=== PATIENT | male | born 1970 | race Caucasian/White ===

== ENCOUNTER → 2019-10-01 09:30 | Outpatient (CLI) | payer OTHER, SELFPAY ==
--- NOTE | 2019-10-01 | DI.RAD.S_ITS ---
PROCEDURE: XR WRIST LT MIN 3V INDICATIONS: LEFT WRIST PAIN TECHNIQUE: 3 views of the wrist were acquired. COMPARISON: None. FINDINGS: Bones: No fractures or dislocations. No suspicious bony lesions. Soft tissues: No suspicious soft tissue calcifications. IMPRESSION: No fracture. No osseous lesion. If symptoms and/or clinical suspicion for pathology persists, further assessment with repeat radiographs (7-10 days) or advanced imaging (e.g. CT, MRI or bone scan) may be helpful. Dictated by: Anila Romero MD, PhD on 10/01/2019 at 17:27 Approved by: Anila Romero MD, PhD on 10/01/2019 at 17:27
== END ==
PROVIDERS: Family Provider Family Medicine; PCP Family Medicine; Referring Provider Family Medicine; Visit Provider Family Medicine
DX: M25.532 Pain in left wrist (principal)
CPT/HCPCS: 73110

== ENCOUNTER → 2020-01-26 09:36 | Outpatient (CLI) | payer OTHER, SELFPAY ==
[2020-01-26 11:58] LABS: COVID19 -Nasal RAPID Negative (Negative)
== END ==
PROVIDERS: PCP Family Medicine; Visit Provider Physician Assistant
DX: Z11.59 Encounter for screening for other viral diseases (principal)
CPT/HCPCS: 87635

== ENCOUNTER → 2020-03-26 08:36 | Outpatient (CLI) | payer OTHER, SELFPAY ==
[2020-03-26] MEDS: COVID-19 VACC(MODERNA-1)/PF 100 MCG/0.5 ML VIAL IM (08:42)
== END ==
PROVIDERS: PCP Family Medicine; Visit Provider Internal Medicine
DX: Z23 Encounter for immunization (principal)
CPT/HCPCS: 0011A; 91301

== ENCOUNTER → 2020-04-23 08:53 | Outpatient (CLI) | payer OTHER, SELFPAY ==
[2020-04-23] MEDS: COVID-19 VACC #2, MRNA(MOD) 100 MCG/0.5 ML VIAL IM (09:00)
== END ==
PROVIDERS: PCP Family Medicine; Visit Provider Internal Medicine
DX: Z23 Encounter for immunization (principal)
CPT/HCPCS: 0012A; 91301

== ENCOUNTER → 2021-01-14 12:54 | Outpatient (CLI) | payer OTHER, SELFPAY ==
[2021-01-14] MEDS: COVID-19 VACC #3, MRNA(MOD) 50 MCG/0.25 ML VIAL IM (13:02)
== END ==
PROVIDERS: PCP Family Medicine; Visit Provider Internal Medicine
DX: Z23 Encounter for immunization (principal)
CPT/HCPCS: 0013A; 91301

== ENCOUNTER 2022-09-26 06:37 | Day surgery (SDC) | payer OTHER, SELFPAY ==
[2022-09-26 07:13] VITALS: BP 139/92; PULSE 63; RESP 16; TEMP 36.8; O2SAT 100; BMI 31.0
--- NOTE | 2022-09-26 07:19 | PM.HP.1 ---
History of Present Illness History of Present Illness Date Patient Seen: 09/26/22 Time Patient Seen: 07:19 Chief complaint: Screening Colonoscopy Narrative: First colonoscopy, no family history and no GI symptoms Meds Home Medications and Allergies Home Medications Medication Instructions Recorded Confirmed Type atorvastatin 20 mg PO DAILY 09/26/22 09/26/22 History Allergies Allergy/AdvReac Type Severity Reaction Status Date / Time No Known Allergies Allergy Verified 09/26/22 07:08 Review of Systems Review of Systems ROS: Yes All systems reviewed with the patient and are negative except as otherwise documented Exam Const General: cooperative, healthy appearing and comfortable HENMT Head: normal to inspection, normocephalic and atraumatic Face and sinus: normal facial exam Eyes General: appearance normal, both eyes and all related structures Sclera: sclerae normal Neck Neck: trachea midline Chest Chest: normal inspection of the chest Resp Effort & Inspection: normal respiratory effort and able to speak in complete sentences Cardio Rate: regular rate Rhythm: regular rhythm GI Palpation: soft Skin General: elasticity normal and turgor normal Neuro General: patient alert, patient awake and patient oriented x3 Cognition: normal cognition Speech: speech normal Psych Mental Status: mental status grossly normal Judgment: judgment good Assessment & Plan Assessment & Plan narrative: Colon cancer screening using colonoscopy under MAC Time Spent With Patient Time with patient: less than 30 minutes
[2022-09-26] MEDS: LACTATED RINGERS 1,000 ML 42 ML IV (07:28)
--- NOTE | 2022-09-26 07:54 | PM.OP.COLON ---
Operative Date/Time/Diagnoses Date of procedure: 09/26/22 Time of procedure: 07:55 Pre-op diagnosis: Colon cancer screening Post-op diagnosis: same Procedure & Clinicians Study performed: Colonoscopy under MAC Same procedure as scheduled: Yes Indications: Colon cancer screening Surgeon: Barbara Miller Procedure Notes Procedure in detail: Preop diagnosis: Colon cancer screening Postop diagnosis: Same Operative procedure: Colonoscopy under MAC Surgeon: Julianne Miller MD Findings: Normal colonoscopy. No diverticulosis, no polyps Procedure: Patient placed in lateral position. Rectal exam performed showing normal tone no masses. Scope was inserted into the rectum and advanced to the ileocecal valve with minimal difficulty. Insufflation and extraction of the scope and the above findings. Retroflex was included in the rectum Impression: Normal colonoscopy, no polyps, no diverticulosis. Plan: Repeat colonoscopy in 10 years unless otherwise indicated by change in clinical condition Specimen(s): none sent Complications: none Post-procedure Recommendations: Colonoscopy in 10 years Follow up: as needed Disposition: PACU
[2022-09-26 07:56] VITALS: BP 113/75; PULSE 59; RESP 16; TEMP 36.1; O2SAT 94
[2022-09-26 07:59] VITALS: BP 114/67; PULSE 56; RESP 14; O2SAT 95
[2022-09-26 08:06] VITALS: BP 120/70; PULSE 57; RESP 12; O2SAT 96
[2022-09-26 08:13] VITALS: BP 102/64; PULSE 54; RESP 19; O2SAT 97
== END 2022-09-26 08:22 | disposition home or self-care (01) ==
PROVIDERS: PCP Family Medicine; Referring Provider Surgery; Visit Provider Surgery
PROC: 0DJD8ZZ Inspection of Lower Intestinal Tract, Via Natural or Artificial Opening Endoscopic (ICD-10-PCS; CPT 45378; principal; 2022-09-26 07:45)
DX: Z12.11 Encounter for screening for malignant neoplasm of colon (principal)
CPT/HCPCS: 45378; J2704

== ENCOUNTER → 2023-10-04 11:19 | Outpatient (CLI) | payer OTHER, SELFPAY ==
--- NOTE | 2023-10-04 11:21 | DI.RAD.S_ITS ---
PROCEDURE: XR SHOULDER LT MIN 2V INDICATIONS: SHOULDER PAIN TECHNIQUE: 3 views of the shoulder were acquired. COMPARISON: None. FINDINGS: Bones: No acute fractures or dislocations. No suspicious bony lesions. Visualized ribs appear intact. [id number] acromioclavicular joint osteoarthrosis. Soft tissues: No suspicious soft tissue calcifications. IMPRESSION: 1. [id number] acromioclavicular joint osteoarthrosis. 2. No acute osseous abnormality. If symptoms persist or if there is continued clinical concern, cross-sectional imaging such as MRI or CT may be helpful for further evaluation. Approved by: Markell Juarez M.D. on 10/05/2023 at 9:13
== END ==
PROVIDERS: PCP Family Medicine; Referring Provider Family Medicine; Visit Provider Family Medicine
DX: M19.012 Primary osteoarthritis, left shoulder (principal); M25.512 Pain in left shoulder; G89.29 Other chronic pain
CPT/HCPCS: 73030

== ENCOUNTER → 2023-12-20 07:41 | Outpatient (CLI) | payer OTHER, SELFPAY | PROVIDERS: Family Provider Family Medicine; PCP Family Medicine; Referring Provider Family Medicine; Visit Provider Family Medicine | DX: R20.0 Anesthesia of skin (principal); M25.512 Pain in left shoulder | CPT/HCPCS: 95886; 95909 ==

== ENCOUNTER → 2024-01-05 10:38 | Outpatient (CLI) | payer OTHER, SELFPAY ==
--- NOTE | 2024-01-05 10:38 | DI.MRI.S_ITS ---
PROCEDURE: MR CERVICAL SPINE WO CON INDICATIONS: LEFT ARM NUMBNESS TECHNIQUE: Noncontrast sagittal T1 spin echo and T2 fast spin echo, sagittal STIR, foraminal oblique sagittal T2 fast spin echo, and axial gradient echo or T2 fast spin echo through the cervical spine. COMPARISON: None. FINDINGS: Image quality: Excellent. Alignment and Curvature: There is straightening of the normal cervical lordosis. No focal AP alignment abnormality is seen. Bone Marrow: Marrow demonstrates normal overall signal. Spinal Cord: Abnormally increased T2 weighted signal can be seen at the C4-C5 level within the spinal cord itself, best demonstrated on series 4, image 28, yet also seen at on series 3, image 9. Visualized spinal cord otherwise has normal size and signal. No cerebellar tonsillar herniation. Paraspinous Soft Tissues: No paravertebral masses. Prevertebral soft tissues are normal in thickness. C2-C3: The disc height and disk signal are well-preserved. A mild degree of generalized disc osteophyte complex is seen. There is a central disc osteophyte protrusion. Mild facet joint hypertrophy is seen. No neural foraminal narrowing is seen. Mild central canal narrowing is seen, with minimal mass effect upon the ventral spinal cord. C3-C4: The disc height and disk signal are relatively well-preserved. Mild to moderate disc osteophyte complex is seen, with a central disc extrusion. Moderate facet joint hypertrophy is seen. There is at least moderate left-sided and moderate right-sided neural foraminal narrowing. Mild to moderate central canal narrowing is seen, with minimal mass effect upon the ventral spinal cord. C4-C5: Mild loss of disc height is seen. Loss of disc signal is seen. Moderate generalized disc osteophyte complex is seen. There is a central disc osteophyte protrusion seen, with moderate to severe central canal narrowing. There is flattening of the ventral spinal cord seen. There is moderate to severe left-sided and at least moderate right-sided neural foraminal narrowing. C5-C6: Moderate loss of disc height is seen. Loss of disc signal is seen. Moderate disc osteophyte complex is seen, which is eccentric to the right. There is a central disc osteophyte protrusion. Uncovertebral joint hypertrophy is seen at this level. Moderate facet joint hypertrophy is seen. There is moderate to severe bilateral neural foraminal narrowing seen. At least moderate central canal narrowing is seen, with associated ventral cord flattening. C6-C7: Moderate loss of disc height is seen. Loss of disc signal is seen. Moderate disc osteophyte complex is seen, with a central/right disc extrusion. Mild to moderate facet hypertrophy is seen. There is moderate bilateral neural foraminal narrowing seen. Moderate to severe central canal narrowing is seen, with associated ventral cord flattening. C7-T1: The disc height and disk signal are well-preserved. A mild degree of generalized disc osteophyte complex is seen. Mild facet joint hypertrophy is seen. Mild bilateral neural foraminal narrowing is seen. No central canal narrowing is seen. IMPRESSION: Multiple levels of significant cervical spine degenerative change can be seen, including moderate to severe central canal narrowing at C4-C5. 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 Significant cervical spine degenerative change can also be seen at C5-C6 and C6-C7. Straightening of the normal cervical lordosis is seen, which is commonly observed in patients with muscular spasm. Dictated by: Brayan Alcantara M.D. on 01/07/2024 at 10:51 Approved by: Brayan Alcantara M.D. on 01/07/2024 at 10:56
== END ==
LOC: MRI 10:38
PROVIDERS: Family Provider Family Medicine; PCP Family Medicine; Referring Provider Family Medicine; Visit Provider Family Medicine
DX: R20.0 Anesthesia of skin (principal); M47.812 Spondylosis without myelopathy or radiculopathy, cervical region; M48.02 Spinal stenosis, cervical region
CPT/HCPCS: 72141

== ENCOUNTER 2024-01-17 11:30 | Outpatient (RCR) | payer OTHER, SELFPAY ==
--- NOTE | 2023-11-20 09:43 | PT.OIE ---
Current Diagnoses Pain in left shoulder (11/20/23) Visit Care Team Role Provider Type Travis Shepard MD Attending Provider Physician Family Provider Primary Care Provider Referring Provider Specialty: Family Practice Address: [address] [place] [address], [facility], [place], [address] Email: [email or web address] Physical Therapy Initial Evaluation PT-OP-A Visit Information Start: 11/15/23 17:29 Freq: Status: Active Protocol: Document 11/20/23 08:17 [facility] (Rec: 11/20/23 09:43 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 (Rec: 11/20/23 09:43 [facility] [id number]) Current Condition History of Current Condition Onset Date 6 months ago Current Complaints LUE numbnes/tingling History of Current Condition Pt reports not sure what started the pain. HE couldn't sleep d/t shoudler hurting. Didn't go to the doctor until recently. It had calmed down when he saw the doctor and had an injection and had 30 days of anti inflamatory. Shoulder itself is feeling better but has a numbness down shoulder and lat arm to thumb. Doctor wants EMG done and he set for Dec 19. Has been able to workout again but going really lightly. Not doing any pull or pull up. Doing light pressing, curls, squats. avoiding deadlift. Tingliness comes and goes. Yesterday playing a video w/son last night moving thumb made arm goe numb. He falls asleep okay but wakes up d/t pain. Can't sleep on R d/t L arm tingling. Has to sleep on L. 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 feels like he doesn't have the strength. 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 Every once in a while gets a pinch in neck after sleeping funny. denies back issues. Has some elbow/ wrist wearing down. Has broken L forearm as teen. At first was using ibuprofen, tylenol and ice. Has some shoulder pain still but mostly w/heavy exersion and its not as much. Treatment Goals Patient/Caregiver Goals be able to sleep, be able to do all work activities w/o tingling/numbness/pain or weakness, be able to get lifting full body PT-OP-C Subjective Start: 11/15/23 17:29 Freq: Status: Active Protocol: Document 11/20/23 08:17 [facility] (Rec: 11/20/23 09:43 [facility] [id number]) Patient Questionnaires Quick Dash- Upper Extremity Quick Dash UE Score 27.27 OP-PT Pain Assessment Location LUE pain Pain Location Details L shoulder to lat arm to thumb Description Tingling Description- Other numbness Frequency Frequent Other Pain Aggravating Factors debra, push up from chair, climb, unknown just happens Other Pain Alleviating Factors change position PT-OP-F Manual Assessment Start: 11/15/23 17:29 Freq: Status: Active Protocol: Document 11/20/23 08:17 [facility] (Rec: 11/20/23 09:43 [facility] [id number]) Manual Assessments Soft Tissue Assessment Soft Tissue Mobility Assessment tightness and tingling elicited w/palpation of scalenes & 1st rib L Joint Mobility Assessment Joint Mobility Assessment elevated L 1st rib PT-OP-J Posture/Palpation/Skin Start: 11/15/23 17:29 Freq: Status: Active Protocol: Document 11/20/23 08:17 [facility] (Rec: 11/20/23 09:43 [facility] [id number]) Posture Evaluation Comments Posture Comments R shoulder higher; L humerus more ant PT-OP-K Range of Motion Start: 11/15/23 17:29 Freq: Status: Active Protocol: Document 11/20/23 08:17 [facility] (Rec: 11/20/23 09:43 [facility] [id number]) Cervical Spine Range of Motion Cervical Spine Active Degrees Flexion 56 Extension 54 Rotation Left 60 Rotation Right 64 Lateral Flexion Left 40 Lateral Flexion Right 40 Comments cramp w/L rot & SB; pull L w/r rot & SB; arm symptoms w/ext; relief flex Shoulder Goniometric Range of Motion Shoulder ROM Limitations Comments normal ROM tightness w/ER, IR behind back, flex, ext PT-OP-L Special Tests Start: 11/15/23 17:29 Freq: Status: Active Protocol: Document 11/20/23 08:17 [facility] (Rec: 11/20/23 09:43 [facility] [id number]) Special Tests Cervical Spine Special Tests costoclavicular syndrome test Test Results neg l wrights test Test Results positive L arterial screen Test Results positional testing neg Comments ausciltation WNL carotid and heart; BP 155/93 Traction Test Results compression-n symptoms; distraction no symptoms Neural Special Tests- Upper Body Median Nerve Tension Test Results positive L Radial Nerve Tension Test Results neg L Ulnar Nerve Tension Test Results neg L PT-OP-M Strength Start: 11/15/23 17:29 Freq: Status: Active Protocol: Document 11/20/23 08:17 [facility] (Rec: 11/20/23 09:43 [facility] [id number]) Shoulder Strength Shoulder Manual Muscle Testing Right Flexion 5 Normal Extension 5 Normal Abduction (C5) 5 Normal External Rotation 5 Normal Internal Rotation 5 Normal Left Flexion 4+ Good+ Extension 4+ Good+ Abduction (C5) 4+ Good+ External Rotation 4- Good- Internal Rotation 4- Good- Elbow/Forearm Strength Elbow and Forearm Manual Muscle Testing Right Flexion (C6) 5 Normal Extension (C7) 5 Normal Pronation 5 Normal Supination 5 Normal Left Flexion (C6) 4+ Good+ Extension (C7) 4+ Good+ Pronation 4+ Good+ Supination 5 Normal Wrist Strength Wrist Manual Muscle Testing Right Flexion (C7) 5 Normal Extension (C6) 5 Normal Ulnar Deviation 5 Normal Radial Deviation 5 Normal Left Flexion (C7) 4+ Good+ Extension (C6) 4+ Good+ Ulnar Deviation 5 Normal Radial Deviation 4+ Good+ Hand Wood Pattern Maker/Pinch Strength Hand Dominance Hand Dominance Right Hand Strength Right Comments 52kg, 49kg, 42kg Left Comments 53kg,47kg, 50kg PT-OP-Q Treatments Start: 11/15/23 17:29 Freq: Status: Active Protocol: Document 11/20/23 08:17 [facility] (Rec: 11/20/23 09:43 [facility] [id number]) Therapeutic Exercises Sitting Exercises neck Sitting Exercise Name sB Side bilateral Reps/Minutes 8 Standing Exercises pec stretch Standing Exercise Name doorway straight arms Side bilateral Reps/Minutes 30 sec Self-Care/Home Management Treatment Education Other Education 8 min: edu re: n anatomy and pathway. Discussed w/ pt n symptoms and presentation; edu on mm surrounding n and weakness noted; edu re: icing to neck to help dec symptoms PT-OP-T Assessment and Plan Start: 11/15/23 17:29 Freq: Status: Active Protocol: Document 11/20/23 08:17 [facility] (Rec: 11/20/23 09:43 [facility] [id number]) Physical Therapy Assessment Rehab Potential Rehabilitation Potential Good Evaluation Complexity Number of Personal Factors/Comorbidities 1-2 Number of Body Systems Impaired 4 or More Clinical Presentation at Evaluation Stable Impairments Impairments Activity Tolerance,Functional Activities,Functional Mobility ,Pain,Posture,ROM,Soft Tissue Mobility,Strength Goals ROM Short Term Goal (STG) Pt will have full cervical ROM w/o inc symptoms STG Duration 12/25 Halfway Goal (LTG) Pt will have full shoulder ROM w/o inc symptoms LTG Duration 01/24 strength Short Term Goal (STG) Pt will be indep w/HEP STG Duration 12/24 Printing Technician Goal (LTG) Pt will score at least 4/5 on EFT and 5/5 on all UE MMT w/o inc symptoms LTG Duration 01/28 activities Short Term Goal (STG) Pt will be able to return to lifting fully w/ missile control pilot weights w/o inc symptoms STG Duration 12/10 Printing Technician Goal (LTG) pt will be able to do all activities at work w/o inc symptoms or feeling of weakness LTG Duration 01/28 Assessment Summary Assessment Pt presents w/ current symptoms of LUE tingling/ numbness and weakness, but when initiatlly started 6 months ago, had significant L shoulder pain that improved w/ injecitons and a months of NSAIDs. 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 PEr testing, pt has med n tension and was positive w/barth's manuever along w/spurlings and ext of neck indicating likely symtpoms coming from neck and superior med n pathway. Pt would benefit from skilled PT to dec symptoms and imrpove pt mobility and strength. Physical Therapy Plan Frequency and Duration Frequency of Treatment 1-2x/wk Duration of treatment (weeks) 10 Plan of Care Start Date 11/20/23 Plan of Care End Date 01/29/24 Therapeutic Interventions Therapeutic Interventions Home Exercise Program,Joint Mobilizations,Manual Therapy, Neuromuscular Re-education, Patient/Caregiver Education, Self-Care/Home Management,Soft Tissue Mobilization,Taping, Therapeutic Activities, Therapeutic Exercises Modalities Cold Pack/Ice Massage,Electric Stimulation,Hot Packs, Infrared Therapy,Traction- Mechanical,Ultrasound Next Visit Focus/Plan Next Note Type Treatment Note Next Visit Plan work along median n pathway, work on upper thoracic mobility, scap mobiltiy, ribs, AC, SC mobility HEP: IR/ER
--- NOTE | 2023-11-20 09:43 | PT.OPPOC ---
Physical, Occupational & Speech Therapy At [facility] Current Diagnoses Pain in left shoulder (11/20/23) Visit Care Team Role Provider Type Travis Shepard MD Attending Provider Physician Family Provider Primary Care Provider Referring Provider Specialty: Family Practice Address: [address] [place] [address], [facility] [place], [address] Email: [email or web address] Plan Of Care PT-OP-B Current Condition Start: 11/15/23 17:29 Freq: Status: Active Protocol: Document 11/20/23 08:17 [facility] (Rec: 11/20/23 09:43 [facility] [id number]) Current Condition History of Current Condition Onset Date 6 months ago Current Complaints LUE numbnes/tingling History of Current Condition Pt reports not sure what started the pain. HE couldn't sleep d/t shoudler hurting. Didn't go to the doctor until recently. It had calmed down when he saw the doctor and had an injection and had 30 days of anti inflamatory. Shoulder itself is feeling better but has a numbness down shoulder and lat arm to thumb. Doctor wants EMG done and he set for Dec 19. Has been able to workout again but going really lightly. Not doing any pull or pull up. Doing light pressing, curls, squats. avoiding deadlift. Tingliness comes and goes. Yesterday playing a video w/son last night moving thumb made arm goe numb. He falls asleep okay but wakes up d/t pain. Can't sleep on R d/t L arm tingling. Has to sleep on L. 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 feels like he doesn't have the strength. 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 Every once in a while gets a pinch in neck after sleeping funny. denies back issues. Has some elbow/ wrist wearing down. Has broken L forearm as teen. At first was using ibuprofen, tylenol and ice. Has some shoulder pain still but mostly w/heavy exersion and its not as much. Treatment Goals Patient/Caregiver Goals be able to sleep, be able to do all work activities w/o tingling/numbness/pain or weakness, be able to get lifting full body PT-OP-T Assessment and Plan Start: 11/15/23 17:29 Freq: Status: Active Protocol: Document 11/20/23 08:17 [facility] (Rec: 11/20/23 09:43 [facility] [id number]) Physical Therapy Assessment Rehab Potential Rehabilitation Potential Good Evaluation Complexity Number of Personal Factors/Comorbidities 1-2 Number of Body Systems Impaired 4 or More Clinical Presentation at Evaluation Stable Impairments Impairments Activity Tolerance,Functional Activities,Functional Mobility ,Pain,Posture,ROM,Soft Tissue Mobility,Strength Goals ROM Short Term Goal (STG) Pt will have full cervical ROM w/o inc symptoms STG Duration 12/25 Financial Reserve Clerk Goal (LTG) Pt will have full shoulder ROM w/o inc symptoms LTG Duration 01/24 strength Short Term Goal (STG) Pt will be indep w/HEP STG Duration 12/24 [facility]cf Goal (LTG) Pt will score at least 4/5 on EFT and 5/5 on all UE MMT w/o inc symptoms LTG Duration 01/28 activities Short Term Goal (STG) Pt will be able to return to lifting fully w/ professional 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 PEr testing, pt has med n tension and was positive w/barth's manuever along w/spurlings and ext of neck indicating likely symtpoms coming from neck and superior med n pathway. Pt would benefit from skilled PT to dec symptoms and imrpove pt mobility and strength. Physical Therapy Plan Frequency and Duration Frequency of Treatment 1-2x/wk Duration of treatment (weeks) 10 Plan of Care Start Date 11/20/23 Plan of Care End Date 01/29/24 Therapeutic Interventions Therapeutic Interventions Home Exercise Program,Joint Mobilizations,Manual Therapy, Neuromuscular Re-education, Patient/Caregiver Education, Self-Care/Home Management,Soft Tissue Mobilization,Taping, Therapeutic Activities, Therapeutic Exercises Modalities Cold Pack/Ice Massage,Electric Stimulation,Hot Packs, Infrared Therapy,Traction- Mechanical,Ultrasound Next Visit Focus/Plan Next Note Type Treatment Note Next Visit Plan work along median n pathway, work on upper thoracic mobility, scap mobiltiy, ribs, AC, SC mobility HEP: IR/ER Plan of Care Dates Plan of Care Start Date 11/20/23 Plan of Care End Date 01/29/24 Electronically Signed by: Blanca Hylton, PT 11/20/23 0943 If you are in agreement with this Plan of Care, please return a signed and dated copy. I have reviewed this Plan of Care and certify that the skilled therapy services above are required to meet the patient?s needs. Physician Signature Date Printed Name and Credentials Clinical Instructor Signature Printed Name and Credentials
--- NOTE | 2023-11-26 12:27 | PT.OTN ---
Current Diagnoses Pain in left shoulder (11/26/23) Physical Therapy Treatment Note PT-OP-A Visit Information Start: 11/15/23 17:29 Freq: Status: Active Protocol: Document 11/26/23 09:49 [facility] (Rec: 11/26/23 12:26 [facility] [id number]) Out-Patient Physical Therapy Visit Information Visit Information Visit Type Treatment Note Visit Note 99 visits/yr Visit Start Time 09:50 Visit Stop Time 10:30 Visit Number 2 Number of DRAWING KIL[employer] SUPERVISOR Visits 0 PT-OP-B Current Condition Start: 11/15/23 17:29 Freq: Status: Active Protocol: Document 11/20/23 08:17 [facility] (Rec: 11/20/23 09:43 [facility] [id number]) Current Condition History of Current Condition Onset Date 6 months ago Current Complaints LUE numbnes/tingling History of Current Condition Pt reports not sure what started the pain. HE couldn't sleep d/t shoudler hurting. Didn't go to the doctor until recently. It had calmed down when he saw the doctor and had an injection and had 30 days of anti inflamatory. Shoulder itself is feeling better but has a numbness down shoulder and lat arm to thumb. Doctor wants EMG done and he set for Dec 19. Has been able to workout again but going really lightly. Not doing any pull or pull up. Doing light pressing, curls, squats. avoiding deadlift. Tingliness comes and goes. Yesterday playing a video w/son last night moving thumb made arm goe numb. He falls asleep okay but wakes up d/t pain. Can't sleep on R d/t L arm tingling. Has to sleep on L. 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 feels like he doesn't have the strength. 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 Every once in a while gets a pinch in neck after sleeping funny. denies back issues. Has some elbow/ wrist wearing down. Has broken L forearm as teen. At first was using ibuprofen, tylenol and ice. Has some shoulder pain still but mostly w/heavy exersion and its not as much. Treatment Goals Patient/Caregiver Goals be able to sleep, be able to do all work activities w/o tingling/numbness/pain or weakness, be able to get lifting full body PT-OP-C Subjective Start: 11/15/23 17:29 Freq: Status: Active Protocol: Document 11/26/23 09:49 [facility] (Rec: 11/26/23 12:26 [facility] [id number]) OP-PT Subjective Patient Comments Patient Comments pt reports compliance w/ exercises PT-OP-F Manual Assessment Start: 11/15/23 17:29 Freq: Status: Active Protocol: Document 11/20/23 08:17 [facility] (Rec: 11/20/23 09:43 [facility] [id number]) Manual Assessments Soft Tissue Assessment Soft Tissue Mobility Assessment tightness and tingling elicited w/palpation of scalenes & 1st rib L Joint Mobility Assessment Joint Mobility Assessment elevated L 1st rib PT-OP-J Posture/Palpation/Skin Start: 11/15/23 17:29 Freq: Status: Active Protocol: Document 11/20/23 08:17 [facility] (Rec: 11/20/23 09:43 [facility] [id number]) Posture Evaluation Comments Posture Comments R shoulder higher; L humerus more ant PT-OP-K Range of Motion Start: 11/15/23 17:29 Freq: Status: Active Protocol: Document 11/20/23 08:17 [facility] (Rec: 11/20/23 09:43 [facility] [id number]) Cervical Spine Range of Motion Cervical Spine Active Degrees Flexion 56 Extension 54 Rotation Left 60 Rotation Right 64 Lateral Flexion Left 40 Lateral Flexion Right 40 Comments cramp w/L rot & SB; pull L w/r rot & SB; arm symptoms w/ext; relief flex Shoulder Goniometric Range of Motion Shoulder ROM Limitations Comments normal ROM tightness w/ER, IR behind back, flex, ext PT-OP-L Special Tests Start: 11/15/23 17:29 Freq: Status: Active Protocol: Document 11/20/23 08:17 [facility] (Rec: 11/20/23 09:43 [facility] [id number]) Special Tests Cervical Spine Special Tests costoclavicular syndrome test Test Results neg l wrights test Test Results positive L arterial screen Test Results positional testing neg Comments ausciltation WNL carotid and heart; BP 155/93 Traction Test Results compression-n symptoms; distraction no symptoms Neural Special Tests- Upper Body Median Nerve Tension Test Results positive L Radial Nerve Tension Test Results neg L Ulnar Nerve Tension Test Results neg L PT-OP-M Strength Start: 11/15/23 17:29 Freq: Status: Active Protocol: Document 11/20/23 08:17 [facility] (Rec: 11/20/23 09:43 [facility] [id number]) Shoulder Strength Shoulder Manual Muscle Testing Right Flexion 5 Normal Extension 5 Normal Abduction (C5) 5 Normal External Rotation 5 Normal Internal Rotation 5 Normal Left Flexion 4+ Good+ Extension 4+ Good+ Abduction (C5) 4+ Good+ External Rotation 4- Good- Internal Rotation 4- Good- Elbow/Forearm Strength Elbow and Forearm Manual Muscle Testing Right Flexion (C6) 5 Normal Extension (C7) 5 Normal Pronation 5 Normal Supination 5 Normal Left Flexion (C6) 4+ Good+ Extension (C7) 4+ Good+ Pronation 4+ Good+ Supination 5 Normal Wrist Strength Wrist Manual Muscle Testing Right Flexion (C7) 5 Normal Extension (C6) 5 Normal Ulnar Deviation 5 Normal Radial Deviation 5 Normal Left Flexion (C7) 4+ Good+ Extension (C6) 4+ Good+ Ulnar Deviation 5 Normal Radial Deviation 4+ Good+ Hand Automation Controls Engineer/Pinch Strength Hand Dominance Hand Dominance Right Hand Strength Right Comments 52kg, 49kg, 42kg Left Comments 53kg,47kg, 50kg PT-OP-Q Treatments Start: 11/15/23 17:29 Freq: Status: Active Protocol: Document 11/26/23 09:49 [facility] (Rec: 11/26/23 12:26 [facility] [id number]) Therapeutic Exercises Supine Exercises foam roll Supine Exercise Name 1. Habd 2. flex Side bilateral Reps/Minutes 10 ea Sitting Exercises neck Sitting Exercise Name SB Side bilateral Reps/Minutes 5 ea Standing Exercises row Side bilateral Equipment Used L3 Reps/Minutes 12 Comments scap retraction cues ER Standing Exercise Name BUE Side bilateral Equipment Used L2 Reps/Minutes 12 Comments cues comfortable range IR Side left Equipment Used [place] band Reps/Minutes 15 pec stretch Standing Exercise Name doorway straight arms Side bilateral Reps/Minutes 30 sec Manual Therapy Treatment Consent Patient gave verbal consent for manual Yes treatment Soft Tissue Mobilization biceps Body Location L w/med n glide Mobilization Type Rolling,Sustained Pressure Intensity/Depth Moderate Body Position Supine pecs Body Location L major/minor Mobilization Type Rolling,Sustained Pressure Intensity/Depth Moderate Body Position Supine Comments w/shoulder IR/ER superior Body Location L UT, LS, scalenes Mobilization Type Rolling,Sustained Pressure Body Position s/l and supine Comments w/scap elevation/depression posterior Body Location L late & teres Mobilization Type Rolling Intensity/Depth Moderate Body Position Sidelying Comments w/scap movements Joint Mobilizations thoracic Joint L ribs Comments Lcaudal 1st rib FM AC Joint L clavicle ant FM w/shrug SC Joint L distraction FM w/c/r retraction PT-OP-T Assessment and Plan Start: 11/15/23 17:29 Freq: Status: Active Protocol: Document 11/26/23 09:49 [facility] (Rec: 11/26/23 12:26 [facility] [id number]) Physical Therapy Assessment Goals ROM Short Term Goal (STG) Pt will have full cervical ROM w/o inc symptoms STG Duration 12/25 Practice Physician Goal (LTG) Pt will have full shoulder ROM w/o inc symptoms LTG Duration 01/24 strength Short Term Goal (STG) Pt will be indep w/HEP STG Duration 12/24 Practice Physician Goal (LTG) Pt will score at least 4/5 on EFT and 5/5 on all UE MMT w/o inc symptoms LTG Duration 01/28 activities Short Term Goal (STG) Pt will be able to return to lifting fully w/ 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 Pt instructed to stop exercise if has pain later w/doing these exercises. signifcant pec and scalenes tightness likely causing UE symptoms. Physical Therapy Plan Frequency and Duration Frequency of Treatment 1-2x/wk Duration of treatment (weeks) 10 Plan of Care Start Date 11/20/23 Plan of Care End Date 01/29/24 Next Visit Focus/Plan Next Note Type Treatment Note Next Visit Plan work along median n pathway, work on upper thoracic mobility, scap mobiltiy, ribs, AC, SC mobility review HEP
--- NOTE | 2023-11-30 16:09 | PT.OTN ---
Current Diagnoses Pain in left shoulder (11/30/23) Physical Therapy Treatment Note PT-OP-A Visit Information Start: 11/15/23 17:29 Freq: Status: Active Protocol: Document 11/30/23 15:21 [facility] (Rec: 11/30/23 16:08 [facility] [id number]) Out-Patient Physical Therapy Visit Information Visit Information Visit Type Treatment Note Visit Note 99 visits/yr Visit Start Time 15:30 Visit Stop Time 14:00 Visit Number 3 Number of TRA[employer]EL [employer]OR [employer] Visits 1 PT-OP-B Current Condition Start: 11/15/23 17:29 Freq: Status: Active Protocol: Document 11/20/23 08:17 [facility] (Rec: 11/20/23 09:43 [facility] [id number]) Current Condition History of Current Condition Onset Date 6 months ago Current Complaints LUE numbnes/tingling History of Current Condition Pt reports not sure what started the pain. HE couldn't sleep d/t shoudler hurting. Didn't go to the doctor until recently. It had calmed down when he saw the doctor and had an injection and had 30 days of anti inflamatory. Shoulder itself is feeling better but has a numbness down shoulder and lat arm to thumb. Doctor wants EMG done and he set for Dec 19. Has been able to workout again but going really lightly. Not doing any pull or pull up. Doing light pressing, curls, squats. avoiding deadlift. Tingliness comes and goes. Yesterday playing a video w/son last night moving thumb made arm goe numb. He falls asleep okay but wakes up d/t pain. Can't sleep on R d/t L arm tingling. Has to sleep on L. 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 feels like he doesn't have the strength. 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 Every once in a while gets a pinch in neck after sleeping funny. denies back issues. Has some elbow/ wrist wearing down. Has broken L forearm as teen. At first was using ibuprofen, tylenol and ice. Has some shoulder pain still but mostly w/heavy exersion and its not as much. Treatment Goals Patient/Caregiver Goals be able to sleep, be able to do all work activities w/o tingling/numbness/pain or weakness, be able to get lifting full body PT-OP-C Subjective Start: 11/15/23 17:29 Freq: Status: Active Protocol: Document 11/30/23 15:21 [facility] (Rec: 11/30/23 16:08 [facility] [id number]) OP-PT Subjective Patient Comments Patient Comments [place] after last session his symptoms improved. Feels some discomfort this afternoon from shoulder to wrist. PT-OP-F Manual Assessment Start: 11/15/23 17:29 Freq: Status: Active Protocol: Document 11/20/23 08:17 [facility] (Rec: 11/20/23 09:43 [facility] [id number]) Manual Assessments Soft Tissue Assessment Soft Tissue Mobility Assessment tightness and tingling elicited w/palpation of scalenes & 1st rib L Joint Mobility Assessment Joint Mobility Assessment elevated L 1st rib PT-OP-J Posture/Palpation/Skin Start: 11/15/23 17:29 Freq: Status: Active Protocol: Document 11/20/23 08:17 [facility] (Rec: 11/20/23 09:43 [facility] [id number]) Posture Evaluation Comments Posture Comments R shoulder higher; L humerus more ant PT-OP-K Range of Motion Start: 11/15/23 17:29 Freq: Status: Active Protocol: Document 11/20/23 08:17 [facility] (Rec: 11/20/23 09:43 [facility] [id number]) Cervical Spine Range of Motion Cervical Spine Active Degrees Flexion 56 Extension 54 Rotation Left 60 Rotation Right 64 Lateral Flexion Left 40 Lateral Flexion Right 40 Comments cramp w/L rot & SB; pull L w/r rot & SB; arm symptoms w/ext; relief flex Shoulder Goniometric Range of Motion Shoulder ROM Limitations Comments normal ROM tightness w/ER, IR behind back, flex, ext PT-OP-L Special Tests Start: 11/15/23 17:29 Freq: Status: Active Protocol: Document 11/20/23 08:17 [facility] (Rec: 11/20/23 09:43 [facility] [id number]) Special Tests Cervical Spine Special Tests costoclavicular syndrome test Test Results neg l wrights test Test Results positive L arterial screen Test Results positional testing neg Comments ausciltation WNL carotid and heart; BP 155/93 Traction Test Results compression-n symptoms; distraction no symptoms Neural Special Tests- Upper Body Median Nerve Tension Test Results positive L Radial Nerve Tension Test Results neg L Ulnar Nerve Tension Test Results neg L PT-OP-M Strength Start: 11/15/23 17:29 Freq: Status: Active Protocol: Document 11/20/23 08:17 [facility] (Rec: 11/20/23 09:43 [facility] [id number]) Shoulder Strength Shoulder Manual Muscle Testing Right Flexion 5 Normal Extension 5 Normal Abduction (C5) 5 Normal External Rotation 5 Normal Internal Rotation 5 Normal Left Flexion 4+ Good+ Extension 4+ Good+ Abduction (C5) 4+ Good+ External Rotation 4- Good- Internal Rotation 4- Good- Elbow/Forearm Strength Elbow and Forearm Manual Muscle Testing Right Flexion (C6) 5 Normal Extension (C7) 5 Normal Pronation 5 Normal Supination 5 Normal Left Flexion (C6) 4+ Good+ Extension (C7) 4+ Good+ Pronation 4+ Good+ Supination 5 Normal Wrist Strength Wrist Manual Muscle Testing Right Flexion (C7) 5 Normal Extension (C6) 5 Normal Ulnar Deviation 5 Normal Radial Deviation 5 Normal Left Flexion (C7) 4+ Good+ Extension (C6) 4+ Good+ Ulnar Deviation 5 Normal Radial Deviation 4+ Good+ Hand Hunter Skin Diver/Pinch Strength Hand Dominance Hand Dominance Right Hand Strength Right Comments 52kg, 49kg, 42kg Left Comments 53kg,47kg, 50kg PT-OP-Q Treatments Start: 11/15/23 17:29 Freq: Status: Active Protocol: Document 11/30/23 15:21 [facility] (Rec: 11/30/23 16:08 TS [id number]) Therapeutic Exercises Supine Exercises open book Reps/Minutes x5 Comments feels a good stretch Sitting Exercises thoracic ext Reps/Minutes x5 Manual Therapy Treatment Soft Tissue Mobilization biceps Mobilization Type Rolling,Sustained Pressure Intensity/Depth Moderate Body Position Supine pecs Body Location L major/minor Mobilization Type Rolling,Sustained Pressure Intensity/Depth Moderate Body Position Supine Comments w/shoulder IR/ER superior Body Location L UT, LS, scalenes Mobilization Type Rolling,Sustained Pressure Body Position s/l and supine Comments w/scap elevation/depression Joint Mobilizations ribs Comments Lcaudal 1st rib FM Nerve Glides Median Details sitting Reps/Duration x5 Comments no replication of symptoms PT-OP-T Assessment and Plan Start: 11/15/23 17:29 Freq: Status: Active Protocol: Document 11/30/23 15:21 [facility] (Rec: 11/30/23 16:08 TS [id number]) Physical Therapy Assessment Goals ROM Short Term Goal (STG) Pt will have full cervical ROM w/o inc symptoms STG Duration 12/25 Longterm Goal (LTG) Pt will have full shoulder ROM w/o inc symptoms LTG Duration 01/24 strength Short Term Goal (STG) Pt will be indep w/HEP STG Duration 12/24 Longterm Goal (LTG) Pt will score at least 4/5 on EFT and 5/5 on all UE MMT w/o inc symptoms LTG Duration 01/28 activities Short Term Goal (STG) Pt will be able to return to lifting fully w/ director energy weights w/o inc symptoms STG Duration 12/10 Longterm Goal (LTG) pt will be able to do all activities at work w/o inc symptoms or feeling of weakness LTG Duration 01/28 Assessment Summary Assessment Pt did not have discomfort during manual therapy but had some nerve pain with thoracic ball roll outs. Continues to have tightness in pec and scalenes. Pt limited in cervical rotation with open book. Physical Therapy Plan Next Visit Focus/Plan Next Note Type Treatment Note Next Visit Plan work along median n pathway, work on upper thoracic mobility, scap mobiltiy, ribs, AC, SC mobility review HEP
--- NOTE | 2023-12-05 12:33 | PT.OTN ---
Current Diagnoses Pain in left shoulder (12/05/23) Physical Therapy Treatment Note PT-OP-A Visit Information Start: 11/15/23 17:29 Freq: Status: Active Protocol: Document 12/05/23 10:38 [facility] (Rec: 12/05/23 12:33 [facility] [id number]) Out-Patient Physical Therapy Visit Information Visit Information Visit Type Treatment Note Visit Note 99 visits/yr Visit Start Time 10:37 Visit Stop Time 11:16 Visit Number 4 Number of SALESPERSON HOSIERY Visits 0 PT-OP-B Current Condition Start: 11/15/23 17:29 Freq: Status: Active Protocol: Document 11/20/23 08:17 [facility] (Rec: 11/20/23 09:43 [facility] [id number]) Current Condition History of Current Condition Onset Date 6 months ago Current Complaints LUE numbnes/tingling History of Current Condition Pt reports not sure what started the pain. HE couldn't sleep d/t shoudler hurting. Didn't go to the doctor until recently. It had calmed down when he saw the doctor and had an injection and had 30 days of anti inflamatory. Shoulder itself is feeling better but has a numbness down shoulder and lat arm to thumb. Doctor wants EMG done and he set for Dec 19. Has been able to workout again but going really lightly. Not doing any pull or pull up. Doing light pressing, curls, squats. avoiding deadlift. Tingliness comes and goes. Yesterday playing a video w/son last night moving thumb made arm goe numb. He falls asleep okay but wakes up d/t pain. Can't sleep on R d/t L arm tingling. Has to sleep on L. 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 feels like he doesn't have the strength. 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 Every once in a while gets a pinch in neck after sleeping funny. denies back issues. Has some elbow/ wrist wearing down. Has broken L forearm as teen. At first was using ibuprofen, tylenol and ice. Has some shoulder pain still but mostly w/heavy exersion and its not as much. Treatment Goals Patient/Caregiver Goals be able to sleep, be able to do all work activities w/o tingling/numbness/pain or weakness, be able to get lifting full body PT-OP-C Subjective Start: 11/15/23 17:29 Freq: Status: Active Protocol: Document 12/05/23 10:38 [facility] (Rec: 12/05/23 12:33 [facility] [id number]) OP-PT Subjective Patient Comments Patient Comments pt reports notes symptoms inc when lean into LUE PT-OP-F Manual Assessment Start: 11/15/23 17:29 Freq: Status: Active Protocol: Document 11/20/23 08:17 [facility] ([facility] 11[facility]20/23 09[id number] Manual Assessments Soft Tissue Assessment Soft Tissue Mobility Assessment tightness and tingling elicited w/palpation of scalenes & 1st rib L Joint Mobility Assessment Joint Mobility Assessment elevated L 1st rib PT-OP-J Posture/Palpation/Skin Start: 11/15/23 17:29 Freq: Status: Active Protocol: Document 11/20/23 08:17 [facility] (Rec: 11/20/23 09:43 [facility] [id number]) Posture Evaluation Comments Posture Comments R shoulder higher; L humerus more ant PT-OP-K Range of Motion Start: 11/15/23 17:29 Freq: Status: Active Protocol: Document 11/20/23 08:17 [facility] (Rec: 11/20/23 09:43 [facility] [id number]) Cervical Spine Range of Motion Cervical Spine Active Degrees Flexion 56 Extension 54 Rotation Left 60 Rotation Right 64 Lateral Flexion Left 40 Lateral Flexion Right 40 Comments cramp w/L rot & SB; pull L w/r rot & SB; arm symptoms w/ext; relief flex Shoulder Goniometric Range of Motion Shoulder ROM Limitations Comments normal ROM tightness w/ER, IR behind back, flex, ext PT-OP-L Special Tests Start: 11/15/23 17:29 Freq: Status: Active Protocol: Document 11/20/23 08:17 [facility] (Rec: 11/20/23 09:43 [facility] [id number]) Special Tests Cervical Spine Special Tests costoclavicular syndrome test Test Results neg l wrights test Test Results positive L arterial screen Test Results positional testing neg Comments ausciltation WNL carotid and heart; BP 155/93 Traction Test Results compression-n symptoms; distraction no symptoms Neural Special Tests- Upper Body Median Nerve Tension Test Results positive L Radial Nerve Tension Test Results neg L Ulnar Nerve Tension Test Results neg L PT-OP-M Strength Start: 11/15/23 17:29 Freq: Status: Active Protocol: Document 11/20/23 08:17 [facility] (Rec: 11/20/23 09:43 [facility] [id number]) Shoulder Strength Shoulder Manual Muscle Testing Right Flexion 5 Normal Extension 5 Normal Abduction (C5) 5 Normal External Rotation 5 Normal Internal Rotation 5 Normal Left Flexion 4+ Good+ Extension 4+ Good+ Abduction (C5) 4+ Good+ External Rotation 4- Good- Internal Rotation 4- Good- Elbow/Forearm Strength Elbow and Forearm Manual Muscle Testing Right Flexion (C6) 5 Normal Extension (C7) 5 Normal Pronation 5 Normal Supination 5 Normal Left Flexion (C6) 4+ Good+ Extension (C7) 4+ Good+ Pronation 4+ Good+ Supination 5 Normal Wrist Strength Wrist Manual Muscle Testing Right Flexion (C7) 5 Normal Extension (C6) 5 Normal Ulnar Deviation 5 Normal Radial Deviation 5 Normal Left Flexion (C7) 4+ Good+ Extension (C6) 4+ Good+ Ulnar Deviation 5 Normal Radial Deviation 4+ Good+ Hand Tier And Detonator/Pinch Strength Hand Dominance Hand Dominance Right Hand Strength Right Comments 52kg, 49kg, 42kg Left Comments 53kg,47kg, 50kg PT-OP-Q Treatments Start: 11/15/23 17:29 Freq: Status: Active Protocol: Document 12/05/23 10:38 [facility] (Rec: 12/05/23 12:33 [facility] [id number]) Therapeutic Exercises Standing Exercises stretch Standing Exercise Name post capsule Side left Equipment Used scap against wall Reps/Minutes 30sec Manual Therapy Treatment Consent Patient gave verbal consent for manual Yes treatment Soft Tissue Mobilization pecs Body Location L major/minor Mobilization Type Rolling,Sustained Pressure Intensity/Depth Moderate Body Position Supine Comments w/shoulder IR/ER superior Body Location L UT, LS, scalenes Mobilization Type Rolling,Sustained Pressure Body Position s/l and supine Comments w/scap elevation/depression posterior Body Location L rhomobids Mobilization Type Rolling Intensity/Depth Moderate Body Position Sidelying Comments w/scap movements Joint Mobilizations GH Comments post glide w/hadd FM ribs Comments Lcaudal 1st and 2nd rib FM L SB ribs 5 and 8 FM c/r w/ext SB external torsion L rib 7 c/r AC Joint L clavicle ant & post FM w/ shrug and Hadd SC Comments L AP w/c/r Habd PT-OP-T Assessment and Plan Start: 11/15/23 17:29 Freq: Status: Active Protocol: Document 12/05/23 10:38 [facility] (Rec: 12/05/23 12:33 [facility] [id number]) Physical Therapy Assessment Goals ROM Short Term Goal (STG) Pt will have full cervical ROM w/o inc symptoms STG Duration 12/25 Senior Living Goal (LTG) Pt will have full shoulder ROM w/o inc symptoms LTG Duration 01/24 strength Short Term Goal (STG) Pt will be indep w/HEP STG Duration 12/24 Senior Living Goal (LTG) Pt will score at least 4/5 on EFT and 5/5 on all UE MMT w/o inc symptoms LTG Duration 01/28 activities Short Term Goal (STG) Pt will be able to 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 At end, able to elicit nerve symptoms w/ palpations to upper thoracic region. Physical Therapy Plan Frequency and Duration Frequency of Treatment 1-2x/wk Duration of treatment (weeks) 10 Plan of Care Start Date 11/20/23 Plan of Care End Date 01/29/24 Next Visit Focus/Plan Next Note Type Treatment Note Next Visit Plan focus on upper thoracic mobs and upper ribs, STM to rhomboids, LS, UT, cont to work on full ROm
--- NOTE | 2023-12-11 11:46 | PT.OTN ---
Current Diagnoses Pain in left shoulder (12/11/23) Physical Therapy Treatment Note PT-OP-A Visit Information Start: 11/15/23 17:29 Freq: Status: Active Protocol: Document 12/11/23 10:40 [facility] (Rec: 12/11/23 11:45 [facility] [id number]) Out-Patient Physical Therapy Visit Information Visit Information Visit Type Treatment Note Visit Note 99 visits/yr Access Code [email or web address] Visit Start Time 10:46 Visit Stop Time 11:43 Visit Number 5 Number of CHURCH WORKER Visits 1 PT-OP-B Current Condition Start: 11/15/23 17:29 Freq: Status: Active Protocol: Document 11/20/23 08:17 [facility] (Rec: 11/20/23 09:43 [facility] [id number]) Current Condition History of Current Condition Onset Date 6 months ago Current Complaints LUE numbnes/tingling History of Current Condition Pt reports not sure what started the pain. HE couldn't sleep d/t shoudler hurting. Didn't go to the doctor until recently. It had calmed down when he saw the doctor and had an injection and had 30 days of anti inflamatory. Shoulder itself is feeling better but has a numbness down shoulder and lat arm to thumb. Doctor wants EMG done and he set for Dec 19. Has been able to workout again but going really lightly. Not doing any pull or pull up. Doing light pressing, curls, squats. avoiding deadlift. Tingliness comes and goes. Yesterday playing a video w/son last night moving thumb made arm goe numb. He falls asleep okay but wakes up d/t pain. Can't sleep on R d/t L arm tingling. Has to sleep on L. 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 feels like he doesn't have the strength. 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 Every once in a while gets a pinch in neck after sleeping funny. denies back issues. Has some elbow/ wrist wearing down. Has broken L forearm as teen. At first was using ibuprofen, tylenol and ice. Has some shoulder pain still but mostly w/heavy exersion and its not as much. Treatment Goals Patient/Caregiver Goals be able to sleep, be able to do all work activities w/o tingling/numbness/pain or weakness, be able to get lifting full body PT-OP-C Subjective Start: 11/15/23 17:29 Freq: Status: Active Protocol: Document 12/11/23 10:40 [facility] (Rec: 12/11/23 11:45 [facility] [id number]) OP-PT Subjective Patient Comments Patient Comments Patient reports since last session, he was a little better. Patient reports radiating pain when lifting his bike overhead and when leaning on his left elbow when seated. * with CS sidebend left UE pain centralizes to shoulder vs entire UE to elbow . PT-OP-F Manual Assessment Start: 11/15/23 17:29 Freq: Status: Active Protocol: Document 11/20/23 08:17 [facility] (Rec: 11/20/23 09:43 [facility] [id number]) Manual Assessments Soft Tissue Assessment Soft Tissue Mobility Assessment tightness and tingling elicited w/palpation of scalenes & 1st rib L Joint Mobility Assessment Joint Mobility Assessment elevated L 1st rib PT-OP-J Posture/Palpation/Skin Start: 11/15/23 17:29 Freq: Status: Active Protocol: Document 11/20/23 08:17 [facility] (Rec: 11/20/23 09:43 [facility] [id number]) Posture Evaluation Comments Posture Comments R shoulder higher; L humerus more ant PT-OP-K Range of Motion Start: 11/15/23 17:29 Freq: Status: Active Protocol: Document 11/20/23 08:17 [facility] (Rec: 11/20/23 09:43 [facility] [id number]) Cervical Spine Range of Motion Cervical Spine Active Degrees Flexion 56 Extension 54 Rotation Left 60 Rotation Right 64 Lateral Flexion Left 40 Lateral Flexion Right 40 Comments cramp w/L rot & SB; pull L w/r rot & SB; arm symptoms w/ext; relief flex Shoulder Goniometric Range of Motion Shoulder ROM Limitations Comments normal ROM tightness w/ER, IR behind back, flex, ext PT-OP-L Special Tests Start: 11/15/23 17:29 Freq: Status: Active Protocol: Document 11/20/23 08:17 [facility] (Rec: 11/20/23 09:43 [facility] [id number]) Special Tests Cervical Spine Special Tests costoclavicular syndrome test Test Results neg l wrights test Test Results positive L arterial screen Test Results positional testing neg Comments ausciltation WNL carotid and heart; BP 155/93 Traction Test Results compression-n symptoms; distraction no symptoms Neural Special Tests- Upper Body Median Nerve Tension Test Results positive L Radial Nerve Tension Test Results neg L Ulnar Nerve Tension Test Results neg L PT-OP-M Strength Start: 11/15/23 17:29 Freq: Status: Active Protocol: Document 11/20/23 08:17 [facility] (Rec: 11/20/23 09:43 [facility] [id number]) Shoulder Strength Shoulder Manual Muscle Testing Right Flexion 5 Normal Extension 5 Normal Abduction (C5) 5 Normal External Rotation 5 Normal Internal Rotation 5 Normal Left Flexion 4+ Good+ Extension 4+ Good+ Abduction (C5) 4+ Good+ External Rotation 4- Good- Internal Rotation 4- Good- Elbow/Forearm Strength Elbow and Forearm Manual Muscle Testing Right Flexion (C6) 5 Normal Extension (C7) 5 Normal Pronation 5 Normal Supination 5 Normal Left Flexion (C6) 4+ Good+ Extension (C7) 4+ Good+ Pronation 4+ Good+ Supination 5 Normal Wrist Strength Wrist Manual Muscle Testing Right Flexion (C7) 5 Normal Extension (C6) 5 Normal Ulnar Deviation 5 Normal Radial Deviation 5 Normal Left Flexion (C7) 4+ Good+ Extension (C6) 4+ Good+ Ulnar Deviation 5 Normal Radial Deviation 4+ Good+ Hand Senior Administrative Services Officer/Pinch Strength Hand Dominance Hand Dominance Right Hand Strength Right Comments 52kg, 49kg, 42kg Left Comments 53kg,47kg, 50kg PT-OP-Q Treatments Start: 11/15/23 17:29 Freq: Status: Active Protocol: Document 12/11/23 10:40 [facility] (Rec: 12/11/23 11:45 [facility] [id number]) Therapeutic Exercises Supine Exercises foam roll Supine Exercise Name 1. pec stretch 2. flex alt UE Side bilateral Reps/Minutes 10 ea Comments reports discomfort ~120 to 140 deg flexion Sidelying Exercises ER Sidelying Exercise Name AROM HEP * for 2 weeks Side left Reps/Minutes X15 Comments Verbal cues Sitting Exercises neck Sitting Exercise Name SB HEP Side bilateral Reps/Minutes 60 sec X1 Comments Verbal cues to hold chair Standing Exercises row Side bilateral Equipment Used L3 Reps/Minutes 15 Comments scap retraction cues Manual Therapy Treatment Consent Patient gave verbal consent for manual Yes treatment Soft Tissue Mobilization biceps Mobilization Type Rolling,Sustained Pressure Intensity/Depth Moderate Body Position Hooklying pecs Body Location L major/minor Mobilization Type Rolling,Sustained Pressure Intensity/Depth Moderate Body Position Hooklying superior Body Location L UT, LS, scalenes Mobilization Type Rolling,Sustained Pressure Body Position Sitting posterior Body Location L rhomobids, lat, post cuff Mobilization Type Rolling Intensity/Depth Moderate Body Position Sidelying Joint Mobilizations scapular Joint left scap Direction into dep and adduction Grade IV Body Position Sidelying Reps/Duration X10 each GH Comments post glide w/hadd FM ribs Joint left 1st Direction inf Grade IV Body Position Hooklying Reps/Duration X10 AC Direction inf Grade III Body Position Hooklying Reps/Duration X10 SC Joint left Direction inf Body Position Hooklying Reps/Duration X10 Manual Techniques PROM left shoulder Type contract relax into ER Reps/Duration X2 PT-OP-R Modalities Start: 11/15/23 17:29 Freq: Status: Active Protocol: Document 12/11/23 10:40 [facility] (Rec: 12/11/23 11:45 [facility] [id number]) Hot Pack/Cold Pack Treatment left shoulder Patient Position Hooklying Comments 10 min PT-OP-T Assessment and Plan Start: 11/15/23 17:29 Freq: Status: Active Protocol: Document 12/11/23 10:40 [facility] (Rec: 12/11/23 11:45 [facility] [id number]) Physical Therapy Assessment Goals ROM Short Term Goal (STG) Pt will have full cervical ROM w/o inc symptoms STG Duration 12/25 Fdc Goal (LTG) Pt will have full shoulder ROM w/o inc symptoms LTG Duration 01/24 strength Short Term Goal (STG) Pt will be indep w/HEP STG Duration 12/24 Fdc Goal (LTG) Pt will score at least 4/5 on EFT and 5/5 on all UE MMT w/o inc symptoms LTG Duration 01/28 activities Short Term Goal (STG) Pt will be able to return to lifting fully w/ lean manufacturing specialist weights w/o inc symptoms STG Duration 12/10 Pile Driving Nozzleman Goal (LTG) pt will be able to do all activities at work w/o inc symptoms or feeling of weakness LTG Duration 01/28 Assessment Summary Assessment Patient reports less left UE pain leaning on left elbow post manual therapy, but not eliminated. Physical Therapy Plan Frequency and Duration Frequency of Treatment 1-2x/wk Duration of treatment (weeks) 10 Plan of Care Start Date 11/20/23 Plan of Care End Date 01/29/24 Therapeutic Interventions Therapeutic Interventions Home Exercise Program,Joint Mobilizations,Manual Therapy, Neuromuscular Re-education, Patient/Caregiver Education, Self-Care/Home Management,Soft Tissue Mobilization,Taping, Therapeutic Activities, Therapeutic Exercises Modalities Cold Pack/Ice Massage,Electric Stimulation,Hot Packs, Infrared Therapy,Traction- Mechanical,Ultrasound Next Visit Focus/Plan Next Note Type Treatment Note Next Visit Plan focus on upper thoracic mobs and upper ribs, STM to rhomboids, LS, UT, cont to work on full ROm
--- NOTE | 2023-12-13 10:26 | PT.OTN ---
Current Diagnoses Pain in left shoulder (12/13/23) Physical Therapy Treatment Note PT-OP-A Visit Information Start: 11/15/23 17:29 Freq: Status: Active Protocol: Document 12/13/23 09:46 SP (Rec: 12/13/23 10:40 SP [id number]) Out-Patient Physical Therapy Visit Information Visit Information Visit Type Treatment Note Visit Note 99 visits/yr Visit Start Time 09:46 Visit Stop Time 10:26 Visit Number 6 Number of VICE PRESIDENT OF HUMAN RESOURCES Visits 2 PT-OP-B Current Condition Start: 11/15/23 17:29 Freq: Status: Active Protocol: Document 11/20/23 08:17 LR (Rec: 11/20/23 09:43 LR [id number]) Current Condition History of Current Condition Onset Date 6 months ago Current Complaints LUE numbnes/tingling History of Current Condition Pt reports not sure what started the pain. HE couldn't sleep d/t shoudler hurting. Didn't go to the doctor until recently. It had calmed down when he saw the doctor and had an injection and had 30 days of anti inflamatory. Shoulder itself is feeling better but has a numbness down shoulder and lat arm to thumb. Doctor wants EMG done and he set for Dec 19. Has been able to workout again but going really lightly. Not doing any pull or pull up. Doing light pressing, curls, squats. avoiding deadlift. Tingliness comes and goes. Yesterday playing a video w/son last night moving thumb made arm goe numb. He falls asleep okay but wakes up d/t pain. Can't sleep on R d/t L arm tingling. Has to sleep on L. 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 feels like he doesn't have the strength. 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 Every once in a while gets a pinch in neck after sleeping funny. denies back issues. Has some elbow/ wrist wearing down. Has broken L forearm as teen. At first was using ibuprofen, tylenol and ice. Has some shoulder pain still but mostly w/heavy exersion and its not as much. Treatment Goals Patient/Caregiver Goals be able to sleep, be able to do all work activities w/o tingling/numbness/pain or weakness, be able to get lifting full body PT-OP-C Subjective Start: 11/15/23 17:29 Freq: Status: Active Protocol: Document 12/13/23 09:46 SP (Rec: 12/13/23 10:40 SP [id number]) OP-PT Subjective Patient Comments Patient Comments Pt reports L shld feeling better but still gets some nerve pinching when reaches close and out to side ABD/ ER. He reports his L shld hurts more of sleeping on R side and L shld hanging, better if lays on L shld with its pressure into bed. Also can feel uncomfortable hanging standing. PT-OP-F Manual Assessment Start: 11/15/23 17:29 Freq: Status: Active Protocol: Document 11/20/23 08:17 [facility] (Rec: 11/20/23 09:43 [facility] [id number]) Manual Assessments Soft Tissue Assessment Soft Tissue Mobility Assessment tightness and tingling elicited w/palpation of scalenes & 1st rib L Joint Mobility Assessment Joint Mobility Assessment elevated L 1st rib PT-OP-J Posture/Palpation/Skin Start: 11/15/23 17:29 Freq: Status: Active Protocol: Document 11/20/23 08:17 [facility] (Rec: 11/20/23 09:43 [facility] [id number]) Posture Evaluation Comments Posture Comments R shoulder higher; L humerus more ant PT-OP-K Range of Motion Start: 11/15/23 17:29 Freq: Status: Active Protocol: Document 11/20/23 08:17 [facility] (Rec: 11/20/23 09:43 [facility] [id number]) Cervical Spine Range of Motion Cervical Spine Active Degrees Flexion 56 Extension 54 Rotation Left 60 Rotation Right 64 Lateral Flexion Left 40 Lateral Flexion Right 40 Comments cramp w/L rot & SB; pull L w/r rot & SB; arm symptoms w/ext; relief flex Shoulder Goniometric Range of Motion Shoulder ROM Limitations Comments normal ROM tightness w/ER, IR behind back, flex, ext PT-OP-L Special Tests Start: 11/15/23 17:29 Freq: Status: Active Protocol: Document 11/20/23 08:17 [facility] (Rec: 11/20/23 09:43 [facility] [id number]) Special Tests Cervical Spine Special Tests costoclavicular syndrome test Test Results neg l wrights test Test Results positive L arterial screen Test Results positional testing neg Comments ausciltation WNL carotid and heart; BP 155/93 Traction Test Results compression-n symptoms; distraction no symptoms Neural Special Tests- Upper Body Median Nerve Tension Test Results positive L Radial Nerve Tension Test Results neg L Ulnar Nerve Tension Test Results neg L PT-OP-M Strength Start: 11/15/23 17:29 Freq: Status: Active Protocol: Document 11/20/23 08:17 [facility] (Rec: 11/20/23 09:43 [facility] [id number]) Shoulder Strength Shoulder Manual Muscle Testing Right Flexion 5 Normal Extension 5 Normal Abduction (C5) 5 Normal External Rotation 5 Normal Internal Rotation 5 Normal Left Flexion 4+ Good+ Extension 4+ Good+ Abduction (C5) 4+ Good+ External Rotation 4- Good- Internal Rotation 4- Good- Elbow/Forearm Strength Elbow and Forearm Manual Muscle Testing Right Flexion (C6) 5 Normal Extension (C7) 5 Normal Pronation 5 Normal Supination 5 Normal Left Flexion (C6) 4+ Good+ Extension (C7) 4+ Good+ Pronation 4+ Good+ Supination 5 Normal Wrist Strength Wrist Manual Muscle Testing Right Flexion (C7) 5 Normal Extension (C6) 5 Normal Ulnar Deviation 5 Normal Radial Deviation 5 Normal Left Flexion (C7) 4+ Good+ Extension (C6) 4+ Good+ Ulnar Deviation 5 Normal Radial Deviation 4+ Good+ Hand Power Shovel Operator Helper/Pinch Strength Hand Dominance Hand Dominance Right Hand Strength Right Comments 52kg, 49kg, 42kg Left Comments 53kg,47kg, 50kg PT-OP-Q Treatments Start: 11/15/23 17:29 Freq: Status: Active Protocol: Document 12/13/23 09:46 SP (Rec: 12/13/23 10:40 SP [id number]) Therapeutic Exercises Supine Exercises foam roll Supine Exercise Name 1. pec stretch 2. FF 3. HABD 4 . serratus press, 5. Ws<>Ys Side bilateral Resistance added to HEP /c HO Reps/Minutes 10 ea Comments cued painfree range into top 1 /2 x and Ws<>Ys Sidelying Exercises open book Sidelying Exercise Name initiated in PT- added to HEP /c HO Side left Equipment Used no pain, head turn with arm Reps/Minutes 10 reps Comments cued slow scapular glide TS rotation Standing Exercises Radial Nerved [place] Standing Exercise Name initiated and to HEP /c HO Side left Reps/Minutes x10 Comments report just little stretch UT to lateral deltoid area, no tingling row Standing Exercise Name HEP reviewed Side bilateral Resistance L3 [place] Reps/Minutes 15 Comments scap retraction cues ER Reps/Minutes 12 IR Side left Resistance [place] band #3 Equipment Used towel roll under arm Reps/Minutes 15 Comments feels fine Manual Therapy Treatment Soft Tissue Mobilization biceps Body Location proximal bicep Mobilization Type Rolling,Sustained Pressure Intensity/Depth Moderate Body Position R SL pecs Body Location L major/minor Mobilization Type Rolling,Sustained Pressure Intensity/Depth Moderate Body Position R SL posterior Body Location L rhomobids, lat, post cuff Mobilization Type Rolling Intensity/Depth Moderate Body Position R Sidelying Joint Mobilizations L elbow Direction inferior, lateral glide Grade II Body Position Supine Comments /c strap scapular Joint left scap Direction adduction, inferior, UR Grade IV Body Position RSidelying Reps/Duration X10 each Comments AAROM scapular glides, thoracic Joint L Grade II Comments L Rotation /c openbook PT-OP-R Modalities Start: 11/15/23 17:29 Freq: Status: Active Protocol: Document 12/11/23 10:40 AB (Rec: 12/11/23 11:45 AB [id number]) Hot Pack/Cold Pack Treatment left shoulder Patient Position Hooklying Comments 10 min PT-OP-T Assessment and Plan Start: 11/15/23 17:29 Freq: Status: Active Protocol: Document 12/13/23 09:46 SP (Rec: 12/13/23 10:40 SP [id number]) Physical Therapy Assessment Goals ROM Short Term Goal (STG) Pt will have full cervical ROM w/o inc symptoms STG Duration 12/25 Fpc Goal (LTG) Pt will have full shoulder ROM w/o inc symptoms LTG Duration 01/24 strength Short Term Goal (STG) Pt will be indep w/HEP STG Duration 12/24 Traffic Supervisor Goal (LTG) Pt will score at least 4/5 on EFT and 5/5 on all UE MMT w/o inc symptoms LTG Duration 01/28 activities Short Term Goal (STG) Pt will be able to return to lifting fully w/ marketing services coordinator weights w/o inc symptoms STG Duration 12/10 Traffic Supervisor Goal (LTG) pt will be able to do all activities at work w/o inc symptoms or feeling of weakness LTG Duration 01/28 Assessment Summary Assessment Pt reports little tingle L 1- 2fingers end range Ws and 1/2 X scaption, cued for range pain and tingle free, was ableto make these corrections. Good fluid AROM during openbook and on foam roller. Intiated radial nerve glide with no adverse affects, only gentle stretch in L UT & deltoid. Provided HOs for home carryover. Physical Therapy Plan Frequency and Duration Frequency of Treatment 1-2x/wk Duration of treatment (weeks) 10 Plan of Care Start Date 11/20/23 Plan of Care End Date 01/29/24 Therapeutic Interventions Therapeutic Interventions Home Exercise Program,Joint Mobilizations,Manual Therapy, Neuromuscular Re-education, Patient/Caregiver Education, Self-Care/Home Management,Soft Tissue Mobilization,Taping, Therapeutic Activities, Therapeutic Exercises Modalities Cold Pack/Ice Massage,Electric Stimulation,Hot Packs, Infrared Therapy,Traction- Mechanical,Ultrasound Next Visit Focus/Plan Next Note Type Treatment Note Next Visit Plan Assess reponse to manual and open book & over foam roller HEP. POC: focus on upper thoracic mobs and upper ribs, STM to rhomboids, LS, UT, cont to work on full ROm
--- NOTE | 2023-12-25 09:52 | PT.OTN ---
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 HE couldn't sleep d/t shoudler hurting. Didn't go to the doctor until recently. It had calmed down when he saw the doctor and had an injection and had 30 days of anti inflamatory. Shoulder itself is feeling better but has a numbness down shoulder and lat arm to thumb. Doctor wants EMG done and he set for Dec 19. Has been able to workout again but going really lightly. Not doing any pull or pull up. Doing light pressing, curls, squats. avoiding deadlift. Tingliness comes and goes. Yesterday playing a video w/son last night moving thumb made arm goe numb. He falls asleep okay but wakes up d/t pain. Can't sleep on R d/t L arm tingling. Has to sleep on L. 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 feels like he doesn't have the strength. 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 Every once in a while gets a pinch in neck after sleeping funny. denies back issues. Has some elbow/ wrist wearing down. Has broken L forearm as teen. At first was using ibuprofen, tylenol and ice. Has some shoulder pain still but mostly w/heavy exersion and its not as much. Treatment Goals Patient/Caregiver Goals be able to sleep, be able to do all work activities w/o tingling/numbness/pain or weakness, be able to get lifting full body PT-OP-C Subjective Start: 11/15/23 17:29 Freq: Status: Active Protocol: Document 12/25/23 09:08 [facility] (Rec: 12/25/23 09:52 [facility] [id number]) OP-PT Subjective Patient Comments Patient Comments Pt reports tingling is there. Stomeitmes when he pushes just right it will flare. Can sleep on side easier and sleep better Patient Reported Progress Improving PT-OP-F Manual Assessment Start: 11/15/23 17:29 Freq: Status: Active Protocol: Document 11/20/23 08:17 [facility] (Rec: 11/20/23 09:43 [facility] [id number]) Manual Assessments Soft Tissue Assessment Soft Tissue Mobility Assessment tightness and tingling elicited w/palpation of scalenes & 1st rib L Joint Mobility Assessment Joint Mobility Assessment elevated L 1st rib PT-OP-J Posture/Palpation/Skin Start: 11/15/23 17:29 Freq: Status: Active Protocol: Document 12/25/23 09:08 [facility] (Rec: 12/25/23 09:52 [facility] [id number]) Posture Evaluation Kael Postural Classification System Elbow Flexion Test 2 PT-OP-K Range of Motion Start: 11/15/23 17:29 Freq: Status: Active Protocol: Document 12/25/23 09:08 [facility] (Rec: 12/25/23 09:52 [facility] [id number]) Cervical Spine Range of Motion Cervical Spine Active Degrees Flexion 61 Extension 56 Rotation Left 66 Rotation Right 69 Lateral Flexion Left 46 Lateral Flexion Right 44 Comments bunching w/L rot & SB; pull L w/r rot & SB; tightness flex, pinch in L lower cervical w/ext Shoulder Goniometric Range of Motion Shoulder ROM Limitations Comments normal ROM tightness w/ER 90/ 90, IR behind back (most significant), flex, abd PT-OP-L Special Tests Start: 11/15/23 17:29 Freq: Status: Active Protocol: Document 11/20/23 08:17 [facility] (Rec: 11/20/23 09:43 [facility] [id number]) Special Tests Cervical Spine Special Tests costoclavicular syndrome test Test Results neg l wrights test Test Results positive L arterial screen Test Results positional testing neg Comments ausciltation WNL carotid and heart; BP 155/93 Traction Test Results compression-n symptoms; distraction no symptoms Neural Special Tests- Upper Body Median Nerve Tension Test Results positive L Radial Nerve Tension Test Results neg L Ulnar Nerve Tension Test Results neg L PT-OP-M Strength Start: 11/15/23 17:29 Freq: Status: Active Protocol: Document 12/25/23 09:08 [facility] (Rec: 12/25/23 09:52 [facility] [id number]) Shoulder Strength Shoulder Manual Muscle Testing Left Flexion 4+ Good+ Extension 5 Normal Abduction (C5) 5 Normal External Rotation 4+ Good+ Internal Rotation 5 Normal Horizontal Abduction 4+ Good+ Horizontal Adduction 5 Normal Elbow/Forearm Strength Elbow and Forearm Manual Muscle Testing Left Flexion (C6) 4+ Good+ Extension (C7) 5 Normal Pronation 5 Normal Supination 5 Normal Comments pain supination Wrist Strength Wrist Manual Muscle Testing Left Flexion (C7) 4+ Good+ Extension (C6) 5 Normal Ulnar Deviation 5 Normal Radial Deviation 5 Normal PT-OP-Q Treatments Start: 11/15/23 17:29 Freq: Status: Active Protocol: Document 12/25/23 09:08 [facility] (Rec: 12/25/23 09:52 [facility] [id number]) Therapeutic Exercises Sitting Exercises Strength Sitting Exercise Name MMT Side left ROM Sitting Exercise Name cervical and shoulder Side bilateral neck Sitting Exercise Name chin tucks- HEP (advance to resistance next time) Reps/Minutes 15 Comments cues for mobility Manual Therapy Treatment Consent Patient gave verbal consent for manual Yes treatment Soft Tissue Mobilization pecs Body Location L major/minor Mobilization Type Rolling,Sustained Pressure Intensity/Depth Moderate superior Body Location L UT, LS, scalenes, paraspinals and SCM Mobilization Type Rolling,Sustained Pressure Body Position Supine Comments w/rot Joint Mobilizations cervical Comments transverse C4 and 5 c/r thoracic Comments L UPA w/chin tuck T1 and 2 ribs Comments caudal 1st SC Comments caudal L w/flex c/r PT-OP-R Modalities Start: 11/15/23 17:29 Freq: Status: Active Protocol: Document 12/11/23 10:40 AB (Rec: 12/11/23 11:45 AB [id number]) Hot Pack/Cold Pack Treatment left shoulder Patient Position Hooklying Comments 10 min PT-OP-T Assessment and Plan Start: 11/15/23 17:29 Freq: Status: Active Protocol: Document 12/25/23 09:08 [facility] (Rec: 12/25/23 09:52 [facility] [id number]) Physical Therapy Assessment Goals ROM Short Term Goal (STG) Pt will have full cervical ROM w/o inc symptoms 12/24-improved ROM w/ some symptoms STG Duration 12/25 Radiology Equipment Servicer Goal (LTG) Pt will have full shoulder ROM w/o inc symptoms 12/24-improving symptoms at end range LTG Duration 01/24 strength Short Term Goal (STG) Pt will be indep w/HEP STG Duration achieved advancing as able Radiology Equipment Servicer Goal (LTG) Pt will score at least 4/5 on EFT and 5/5 on all UE MMT w/o inc symptoms 12/24-advancing LTG Duration 01/28 activities Short Term Goal (STG) Pt will be able to return to lifting fully w/ him assistant weights w/o inc symptoms 12/24-some symptoms after, occ during-more slight STG Duration 12/10 Longterm Goal (LTG) pt will be able to do all activities at work w/o inc symptoms or feeling of weakness 12/24-currently training some one for last 2 weeks os hasn't had to do as much heavy work LTG Duration 01/28 Assessment Summary Assessment Pt making gradual progression w/PT and dec of symptoms overall. He cont to improve w/ strength also. Cont PT to dec symptoms and improve functional ability Physical Therapy Plan Frequency and Duration Frequency of Treatment 1-2x/wk Duration of treatment (weeks) 10 Plan of Care Start Date 11/20/23 Plan of Care End Date 01/29/24 Therapeutic Interventions Therapeutic Interventions Home Exercise Program,Joint Mobilizations,Manual Therapy, Neuromuscular Re-education, Patient/Caregiver Education, Self-Care/Home Management,Soft Tissue Mobilization,Taping, Therapeutic Activities, Therapeutic Exercises Modalities Cold Pack/Ice Massage,Electric Stimulation,Hot Packs, Infrared Therapy,Traction- Mechanical,Ultrasound Next Visit Focus/Plan Next Note Type Treatment Note Next Visit Plan focus on upper thoracic mobs and upper ribs, STM to rhomboids, LS, UT, cont to work on full ROm consolidate HEP (keep foam roll exercises, chin tucks and give a few more stability exercises)
--- NOTE | 2023-12-27 10:39 | PT.OTN ---
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 (Rec: 11/20/23 09:43 [facility] [id number]) Current Condition History of Current Condition Onset Date 6 months ago Current Complaints LUE numbnes/tingling History of Current Condition Pt reports not sure what started the pain. HE couldn't sleep d/t shoudler hurting. Didn't go to the doctor until recently. It had calmed down when he saw the doctor and had an injection and had 30 days of anti inflamatory. Shoulder itself is feeling better but has a numbness down shoulder and lat arm to thumb. Doctor wants EMG done and he set for Dec 19. Has been able to workout again but going really lightly. Not doing any pull or pull up. Doing light pressing, curls, squats. avoiding deadlift. Tingliness comes and goes. Yesterday playing a video w/son last night moving thumb made arm goe numb. He falls asleep okay but wakes up d/t pain. Can't sleep on R d/t L arm tingling. Has to sleep on L. 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 feels like he doesn't have the strength. 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 Every once in a while gets a pinch in neck after sleeping funny. denies back issues. Has some elbow/ wrist wearing down. Has broken L forearm as teen. At first was using ibuprofen, tylenol and ice. Has some shoulder pain still but mostly w/heavy exersion and its not as much. Treatment Goals Patient/Caregiver Goals be able to sleep, be able to do all work activities w/o tingling/numbness/pain or weakness, be able to get lifting full body PT-OP-C Subjective Start: 11/15/23 17:29 Freq: Status: Active Protocol: Document 12/27/23 08:10 AB (Rec: 12/27/23 10:38 AB [id number]) OP-PT Subjective Patient Comments Patient Comments Patient reports the tingling is getting better, has more pain vs numbing out. PT-OP-F Manual Assessment Start: 11/15/23 17:29 Freq: Status: Active Protocol: Document 11/20/23 08:17 [facility] (Rec: 11/20/23 09:43 [facility] [id number]) Manual Assessments Soft Tissue Assessment Soft Tissue Mobility Assessment tightness and tingling elicited w/palpation of scalenes & 1st rib L Joint Mobility Assessment Joint Mobility Assessment elevated L 1st rib PT-OP-J Posture/Palpation/Skin Start: 11/15/23 17:29 Freq: Status: Active Protocol: Document 12/25/23 09:08 [facility] (Rec: 12/25/23 09:52 [facility] [id number]) Posture Evaluation Kael Postural Classification System Elbow Flexion Test 2 PT-OP-K Range of Motion Start: 11/15/23 17:29 Freq: Status: Active Protocol: Document 12/25/23 09:08 [facility] (Rec: 12/25/23 09:52 [facility] [id number]) Cervical Spine Range of Motion Cervical Spine Active Degrees Flexion 61 Extension 56 Rotation Left 66 Rotation Right 69 Lateral Flexion Left 46 Lateral Flexion Right 44 Comments bunching w/L rot & SB; pull L w/r rot & SB; tightness flex, pinch in L lower cervical w/ext Shoulder Goniometric Range of Motion Shoulder ROM Limitations Comments normal ROM tightness w/ER 90/ 90, IR behind back (most significant), flex, abd PT-OP-L Special Tests Start: 11/15/23 17:29 Freq: Status: Active Protocol: Document 11/20/23 08:17 [facility] (Rec: 11/20/23 09:43 [facility] [id number]) Special Tests Cervical Spine Special Tests costoclavicular syndrome test Test Results neg l wrights test Test Results positive L arterial screen Test Results positional testing neg Comments ausciltation WNL carotid and heart; BP 155/93 Traction Test Results compression-n symptoms; distraction no symptoms Neural Special Tests- Upper Body Median Nerve Tension Test Results positive L Radial Nerve Tension Test Results neg L Ulnar Nerve Tension Test Results neg L PT-OP-M Strength Start: 11/15/23 17:29 Freq: Status: Active Protocol: Document 12/25/23 09:08 [facility] (Rec: 12/25/23 09:52 [facility] [id number]) Shoulder Strength Shoulder Manual Muscle Testing Left Flexion 4+ Good+ Extension 5 Normal Abduction (C5) 5 Normal External Rotation 4+ Good+ Internal Rotation 5 Normal Horizontal Abduction 4+ Good+ Horizontal Adduction 5 Normal Elbow/Forearm Strength Elbow and Forearm Manual Muscle Testing Left Flexion (C6) 4+ Good+ Extension (C7) 5 Normal Pronation 5 Normal Supination 5 Normal Comments pain supination Wrist Strength Wrist Manual Muscle Testing Left Flexion (C7) 4+ Good+ Extension (C6) 5 Normal Ulnar Deviation 5 Normal Radial Deviation 5 Normal PT-OP-Q Treatments Start: 11/15/23 17:29 Freq: Status: Active Protocol: Document 12/27/23 08:10 AB (Rec: 12/27/23 10:38 AB [id number]) Therapeutic Exercises Supine Exercises CS rotation Supine Exercise Name on occipital float Side bilateral Reps/Minutes 2 min Comments verbal cues to perform slowly in pain free range Sidelying Exercises open book Sidelying Exercise Name initiated in PT- added to HEP /c HO Side bilateral Reps/Minutes 5 reps Sitting Exercises neck Sitting Exercise Name deep neck flexor isomet reactive HEP Side bilateral Resistance level one band Reps/Minutes X12 Comments Verbal and visual cues Other Exercises CS rotation Other Exercise Name in counter plank position HEP Side bilateral Reps/Minutes X10 Comments Verbal cues to perform in pain free range Manual Therapy Treatment Soft Tissue Mobilization pecs Body Location L major/minor Mobilization Type Rolling,Sustained Pressure Intensity/Depth Moderate superior Body Location L UT, LS, scalenes, paraspinals and SCM, > right Mobilization Type Rolling,Sustained Pressure Body Position Supine Comments w/rot Joint Mobilizations scapular Joint left scap Direction adduction, inferior, Grade IV Body Position RSidelying Reps/Duration X10 each ribs Comments caudal 1st and 2nd PT-OP-R Modalities Start: 11/15/23 17:29 Freq: Status: Active Protocol: Document 12/11/23 10:40 AB (Rec: 12/11/23 11:45 AB [id number]) Hot Pack/Cold Pack Treatment left shoulder Patient Position Hooklying Comments 10 min PT-OP-T Assessment and Plan Start: 11/15/23 17:29 Freq: Status: Active Protocol: Document 12/27/23 08:10 AB (Rec: 12/27/23 10:38 AB [id number]) Physical Therapy Assessment Goals ROM Short Term Goal (STG) Pt will have full cervical ROM w/o inc symptoms 12/24-improved ROM w/ some symptoms STG Duration 12/25 Custodial Goal (LTG) Pt will have full shoulder ROM w/o inc symptoms 12/24-improving symptoms at end range LTG Duration 01/24 strength Short Term Goal (STG) Pt will be indep w/HEP STG Duration achieved advancing as able Custodial Goal (LTG) Pt will score at least 4/5 on EFT and 5/5 on all UE MMT w/o inc symptoms 12/24-advancing LTG Duration 01/28 activities Short Term Goal (STG) Pt will be able to return to lifting fully w/ dough sheeter weights w/o inc symptoms 12/24-some symptoms after, occ during-more slight STG Duration 12/10 Custodial Goal (LTG) pt will be able to do all activities at work w/o inc symptoms or feeling of weakness 12/24-currently training some one for last 2 weeks os hasn't had to do as much heavy work LTG Duration 01/28 Assessment Summary Assessment Oswaldo reports having no numbness and tingling end of session, reports some discomfort in shoulder joint with open book to left. Physical Therapy Plan Frequency and Duration Frequency of Treatment 1-2x/wk Duration of treatment (weeks) 10 Plan of Care Start Date 11/20/23 Plan of Care End Date 01/29/24 Next Visit Focus/Plan Next Note Type Treatment Note Next Visit Plan focus on upper thoracic mobs and upper ribs, STM to rhomboids, LS, UT, cont to work on full ROm consolidate HEP (keep foam roll exercises, chin tucks and give a few more stability exercises)
--- NOTE | 2024-01-17 12:58 | PT.OTN ---
Current Diagnoses Pain in left shoulder (01/17/24) Physical Therapy Treatment Note PT-OP-A Visit Information Start: 11/15/23 17:29 Freq: Status: Active Protocol: Document 01/17/24 10:45 AB (Rec: 01/17/24 12:58 AB [id number]) Out-Patient Physical Therapy Visit Information Visit Information Visit Type Treatment Note Visit Note 99 visits/yr Access Code: [email or web address] Visit Start Time 11:33 Visit Stop Time 12:20 Visit Number 9 Number of COSTUME DESIGNER Visits 2 PT-OP-B Current Condition Start: 11/15/23 17:29 Freq: Status: Active Protocol: Document 11/20/23 08:17 [facility] (Rec: 11/20/23 09:43 [facility] [id number]) Current Condition History of Current Condition Onset Date 6 months ago Current Complaints LUE numbnes/tingling History of Current Condition Pt reports not sure what started the pain. HE couldn't sleep d/t shoudler hurting. Didn't go to the doctor until recently. It had calmed down when he saw the doctor and had an injection and had 30 days of anti inflamatory. Shoulder itself is feeling better but has a numbness down shoulder and lat arm to thumb. Doctor wants EMG done and he set for Dec 19. Has been able to workout again but going really lightly. Not doing any pull or pull up. Doing light pressing, curls, squats. avoiding deadlift. Tingliness comes and goes. Yesterday playing a video w/son last night moving thumb made arm goe numb. He falls asleep okay but wakes up d/t pain. Can't sleep on R d/t L arm tingling. Has to sleep on L. 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 feels like he doesn't have the strength. 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 Every once in a while gets a pinch in neck after sleeping funny. denies back issues. Has some elbow/ wrist wearing down. Has broken L forearm as teen. At first was using ibuprofen, tylenol and ice. Has some shoulder pain still but mostly w/heavy exersion and its not as much. Treatment Goals Patient/Caregiver Goals be able to sleep, be able to do all work activities w/o tingling/numbness/pain or weakness, be able to get lifting full body PT-OP-C Subjective Start: 11/15/23 17:29 Freq: Status: Active Protocol: Document 01/17/24 10:45 AB (Rec: 01/17/24 12:58 AB [id number]) OP-PT Subjective Patient Comments Patient Comments Patient reports he is 85% better, is sleeping better. Patient reports decreased pain post Use in force instructor activity for 6 hours a day of training 2 weeks ago. Patient reports he has returned to authorization representative weights, ie instead of bench press with 225 to 250, is doing dumbells 50# more reps. Patient reports he continues to use the bands. AROM CS rotation left< right with reports of pain on left. PT-OP-F Manual Assessment Start: 11/15/23 17:29 Freq: Status: Active Protocol: Document 11/20/23 08:17 [facility] (Rec: 11/20/23 09:43 [facility] [id number]) Manual Assessments Soft Tissue Assessment Soft Tissue Mobility Assessment tightness and tingling elicited w/palpation of scalenes & 1st rib L Joint Mobility Assessment Joint Mobility Assessment elevated L 1st rib PT-OP-J Posture/Palpation/Skin Start: 11/15/23 17:29 Freq: Status: Active Protocol: Document 12/25/23 09:08 [facility] (Rec: 12/25/23 09:52 [facility] [id number]) Posture Evaluation Kael Postural Classification System Elbow Flexion Test 2 PT-OP-K Range of Motion Start: 11/15/23 17:29 Freq: Status: Active Protocol: Document 12/25/23 09:08 [facility] (Rec: 12/25/23 09:52 [facility] [id number]) Cervical Spine Range of Motion Cervical Spine Active Degrees Flexion 61 Extension 56 Rotation Left 66 Rotation Right 69 Lateral Flexion Left 46 Lateral Flexion Right 44 Comments bunching w/L rot & SB; pull L w/r rot & SB; tightness flex, pinch in L lower cervical w/ext Shoulder Goniometric Range of Motion Shoulder ROM Limitations Comments normal ROM tightness w/ER 90/ 90, IR behind back (most significant), flex, abd PT-OP-L Special Tests Start: 11/15/23 17:29 Freq: Status: Active Protocol: Document 11/20/23 08:17 [facility] (Rec: 11/20/23 09:43 [facility] [id number]) Special Tests Cervical Spine Special Tests costoclavicular syndrome test Test Results neg l wrights test Test Results positive L arterial screen Test Results positional testing neg Comments ausciltation WNL carotid and heart; BP 155/93 Traction Test Results compression-n symptoms; distraction no symptoms Neural Special Tests- Upper Body Median Nerve Tension Test Results positive L Radial Nerve Tension Test Results neg L Ulnar Nerve Tension Test Results neg L PT-OP-M Strength Start: 11/15/23 17:29 Freq: Status: Active Protocol: Document 12/25/23 09:08 [facility] (Rec: 12/25/23 09:52 [facility] [id number]) Shoulder Strength Shoulder Manual Muscle Testing Left Flexion 4+ Good+ Extension 5 Normal Abduction (C5) 5 Normal External Rotation 4+ Good+ Internal Rotation 5 Normal Horizontal Abduction 4+ Good+ Horizontal Adduction 5 Normal Elbow/Forearm Strength Elbow and Forearm Manual Muscle Testing Left Flexion (C6) 4+ Good+ Extension (C7) 5 Normal Pronation 5 Normal Supination 5 Normal Comments pain supination Wrist Strength Wrist Manual Muscle Testing Left Flexion (C7) 4+ Good+ Extension (C6) 5 Normal Ulnar Deviation 5 Normal Radial Deviation 5 Normal PT-OP-Q Treatments Start: 11/15/23 17:29 Freq: Status: Active Protocol: Document 01/17/24 10:45 AB (Rec: 01/17/24 12:58 AB [id number]) Therapeutic Exercises Supine Exercises CS rotation Supine Exercise Name on occipital float Side bilateral Reps/Minutes 2 min Comments verbal cues to perform slowly in pain free range foam roll Supine Exercise Name 1. pec stretch 2. FF 3. HABD 4 . serratus press, 5. Ws<>Ys Side bilateral Reps/Minutes 10 ea Comments Verbal cues to alternate UE flex Sidelying Exercises open book Side bilateral Reps/Minutes 5 reps Sitting Exercises neck Sitting Exercise Name deep neck flexor isomet reactive HEP Side bilateral Resistance level one band Equipment Used standing this session HEP review Reps/Minutes X10 Comments Verbal and visual cues Other Exercises CS rotation Other Exercise Name in counter plank position HEP Side bilateral Equipment Used DC for HEP due to increased radicular pain Reps/Minutes X2 Manual Therapy Treatment Soft Tissue Mobilization pecs Body Location L>R major/minor Mobilization Type Rolling,Sustained Pressure Intensity/Depth Moderate superior Body Location L UT, LS, scalenes, paraspinals and SCM, > right Mobilization Type Rolling,Sustained Pressure Body Position Sitting posterior Body Location L rhomobids, lat, post cuff Mobilization Type Rolling Intensity/Depth Moderate Body Position R Sidelying Joint Mobilizations scapular Joint left scap Direction adduction, inferior, Grade IV Body Position RSidelying Reps/Duration X10 each thoracic Joint T1 through T 12 Body Position Prone Reps/Duration X6 each level PT-OP-R Modalities Start: 11/15/23 17:29 Freq: Status: Active Protocol: Document 12/11/23 10:40 AB (Rec: 12/11/23 11:45 AB [id number]) Hot Pack/Cold Pack Treatment left shoulder Patient Position Hooklying Comments 10 min PT-OP-T Assessment and Plan Start: 11/15/23 17:29 Freq: Status: Active Protocol: Document 01/17/24 10:45 AB (Rec: 01/17/24 12:58 AB [id number]) Physical Therapy Assessment Goals ROM Short Term Goal (STG) Pt will have full cervical ROM w/o inc symptoms 12/24-improved ROM w/ some symptoms STG Duration 12/25 Half-Way Goal (LTG) Pt will have full shoulder ROM w/o inc symptoms 12/24-improving symptoms at end range LTG Duration 01/24 strength Short Term Goal (STG) Pt will be indep w/HEP STG Duration achieved advancing as able Perforator Goal (LTG) Pt will score at least 4/5 on EFT and 5/5 on all UE MMT w/o inc symptoms 12/24-advancing LTG Duration 01/28 activities Short Term Goal (STG) Pt will be able to return to lifting fully w/ authorization representative weights w/o inc symptoms 12/24-some symptoms after, occ during-more slight STG Duration 12/10 Perforator Goal (LTG) pt will be able to do all activities at work w/o inc symptoms or feeling of weakness 12/24-currently training some one for last 2 weeks os hasn't had to do as much heavy work LTG Duration 01/28 Assessment Summary Assessment Oswaldo reports having no increased pain end of session, no radicular symptoms. Pt did have episode of radicular pain with CS rotation in counter plank postion. Physical Therapy Plan Frequency and Duration Frequency of Treatment 1-2x/wk Duration of treatment (weeks) 10 Plan of Care Start Date 11/20/23 Plan of Care End Date 01/29/24 Next Visit Focus/Plan Next Note Type Treatment Note Next Visit Plan focus on upper thoracic mobs and upper ribs, STM to rhomboids, LS, UT, cont to work on full ROm consolidate HEP (keep foam roll exercises, chin tucks and give a few more stability exercises/possibly isometrics for rot and sidebend)
--- NOTE | 2024-01-23 09:57 | PT-OP ANOTE ---
Pt called re: cancellation of last scheduled appt to ask if pt plans to cont PT. Asked to call back re: plan
--- NOTE | 2024-02-19 09:37 | PT.OPDS ---
Current Diagnoses Pain in left shoulder (01/17/24) Visit Care Team Role Provider Type Travis Shepard MD Attending Provider Physician Family Provider Primary Care Provider Referring Provider Specialty: Family Practice Address: [address] [place] [address], [address], [place], [address] Email: [email or web address] Visit Number Visit Number 9 Discharge Summary PT-OP-B Current Condition Start: 11/15/23 17:29 Freq: Status: Active Protocol: Document 11/20/23 08:17 [facility] (Rec: 11/20/23 09:43 [facility] [id number]) Current Condition History of Current Condition Onset Date 6 months ago Current Complaints LUE numbnes/tingling History of Current Condition Pt reports not sure what started the pain. HE couldn't sleep d/t shoudler hurting. Didn't go to the doctor until recently. It had calmed down when he saw the doctor and had an injection and had 30 days of anti inflamatory. Shoulder itself is feeling better but has a numbness down shoulder and lat arm to thumb. Doctor wants EMG done and he set for Dec 19. Has been able to workout again but going really lightly. Not doing any pull or pull up. Doing light pressing, curls, squats. avoiding deadlift. Tingliness comes and goes. Yesterday playing a video w/son last night moving thumb made arm goe numb. He falls asleep okay but wakes up d/t pain. Can't sleep on R d/t L arm tingling. Has to sleep on L. 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 feels like he doesn't have the strength. 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 Every once in a while gets a pinch in neck after sleeping funny. denies back issues. Has some elbow/ wrist wearing down. Has broken L forearm as teen. At first was using ibuprofen, tylenol and ice. Has some shoulder pain still but mostly w/heavy exersion and its not as much. Treatment Goals Patient/Caregiver Goals be able to sleep, be able to do all work activities w/o tingling/numbness/pain or weakness, be able to get lifting full body PT-OP-C Subjective Start: 11/15/23 17:29 Freq: Status: Active Protocol: Document 01/17/24 10:45 [facility] (Rec: 01/17/24 12:58 [facility] [id number]) OP-PT Subjective Patient Comments Patient Comments Patient reports he is 85% better, is sleeping better. Patient reports decreased pain post Use in force instructor activity for 6 hours a day of training 2 weeks ago. 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 Patient reports he continues to use the bands. AROM CS rotation left< right with reports of pain on left. PT-OP-F Manual Assessment Start: 11/15/23 17:29 Freq: Status: Active Protocol: Document 11/20/23 08:17 [facility] (Rec: 11/20/23 09:43 [facility] [id number]) Manual Assessments Soft Tissue Assessment Soft Tissue Mobility Assessment tightness and tingling elicited w/palpation of scalenes & 1st rib L Joint Mobility Assessment Joint Mobility Assessment elevated L 1st rib PT-OP-J Posture/Palpation/Skin Start: 11/15/23 17:29 Freq: Status: Active Protocol: Document 12/25/23 09:08 [facility] (Rec: 12/25/23 09:52 [facility] [id number]) Posture Evaluation [facility] Postural Classification System Elbow Flexion Test 2 PT-OP-K Range of Motion Start: 11/15/23 17:29 Freq: Status: Active Protocol: Document 12/25/23 09:08 [facility] (Rec: 12/25/23 09:52 [facility] [id number]) Cervical Spine Range of Motion Cervical Spine Active Degrees Flexion 61 Extension 56 Rotation Left 66 Rotation Right 69 Lateral Flexion Left 46 Lateral Flexion Right 44 Comments bunching w/L rot & SB; pull L w/r rot & SB; tightness flex, pinch in L lower cervical w/ext Shoulder Goniometric Range of Motion Shoulder ROM Limitations Comments normal ROM tightness w/ER 90/ 90, IR behind back (most significant), flex, abd PT-OP-L Special Tests Start: 11/15/23 17:29 Freq: Status: Active Protocol: Document 11/20/23 08:17 [facility] (Rec: 11/20/23 09:43 [facility] [id number]) Special Tests Cervical Spine Special Tests costoclavicular syndrome test Test Results neg l wrights test Test Results positive L arterial screen Test Results positional testing neg Comments ausciltation WNL carotid and heart; BP 155/93 Traction Test Results compression-n symptoms; distraction no symptoms Neural Special Tests- Upper Body Median Nerve Tension Test Results positive L Radial Nerve Tension Test Results neg L Ulnar Nerve Tension Test Results neg L PT-OP-M Strength Start: 11/15/23 17:29 Freq: Status: Active Protocol: Document 12/25/23 09:08 [facility] (Rec: 12/25/23 09:52 [facility] [id number]) Shoulder Strength Shoulder Manual Muscle Testing Left Flexion 4+ Good+ Extension 5 Normal Abduction (C5) 5 Normal External Rotation 4+ Good+ Internal Rotation 5 Normal Horizontal Abduction 4+ Good+ Horizontal Adduction 5 Normal Elbow/Forearm Strength Elbow and Forearm Manual Muscle Testing Left Flexion (C6) 4+ Good+ Extension (C7) 5 Normal Pronation 5 Normal Supination 5 Normal Comments pain supination Wrist Strength Wrist Manual Muscle Testing Left Flexion (C7) 4+ Good+ Extension (C6) 5 Normal Ulnar Deviation 5 Normal Radial Deviation 5 Normal PT-OP-T Assessment and Plan Start: 11/15/23 17:29 Freq: Status: Active Protocol: Document 02/19/24 09:36 [facility] (Rec: 02/19/24 09:37 [facility] [id number]) Physical Therapy Assessment Goals ROM Short Term Goal (STG) Pt will have full cervical ROM w/o inc symptoms 12/24-improved ROM w/ some symptoms STG Duration 12/25 Jail Goal (LTG) Pt will have full shoulder ROM w/o inc symptoms 12/24-improving symptoms at end range LTG Duration 01/24 strength Short Term Goal (STG) Pt will be indep w/HEP STG Duration achieved advancing as able Risk Control Representative Goal (LTG) Pt will score at least 4/5 on EFT and 5/5 on all UE MMT w/o inc symptoms 12/24-advancing LTG Duration 01/28 activities Short Term Goal (STG) Pt will be able to return to lifting fully w/ assembler 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 At this time, DC d/ t no longer attending PT. pt had much improved symptoms w/ PT during time he was seen Physical Therapy Plan Discharge Physical Therapy Discharge Reasons No Longer Attending PT
== END 2024-02-27 14:59 | disposition home or self-care (01) ==
LOC: PHYS 11:30
PROVIDERS: Family Provider Family Medicine; PCP Family Medicine; Referring Provider Family Medicine; Visit Provider Family Medicine
DX: M25.512 Pain in left shoulder (principal)
CPT/HCPCS: 97110; 97140; 97161; 97535